=== PATIENT | female | born 1975 | race Caucasian/White ===

== ENCOUNTER 2019-06-18 10:46 | Inpatient (IN) | payer MEDICAID ==
[~2019-06-18] VITALS: Ht 157.5 cm; Wt 66.6 kg
[2019-06-18] MEDS ORDERED: dexamethasone sod phosphate 10mg/ml inj IV STA (10:59)
[2019-06-18] MEDS ORDERED: normal saline 1000ML IV soln IVB ONE ×2 (11:00→12:10)
[2019-06-18] MEDS ORDERED: proCHLORperazine 10 MG/2 ml inj IV ONE (11:00)
[2019-06-18 11:29] LABS: BASOPHILS % (AUTO) 0.4 % (0-1); EOSINOPHILS % (AUTO) 0.1 % (0-6); HEMATOCRIT 28.6 % (35.0-45.0); HEMOGLOBIN 8.8 g/dl (12.0-16.0); LYMPHOCYTES # (AUTO) 0.2 X10'3 (1.1-4.8); LYMPHOCYTES % (AUTO) 3.5 % (21-51); MEAN CORPUSCULAR HEMOGLOBIN 24.2 PG (27.0-31.0); MEAN CORPUSCULAR HGB CONC 30.6 g/dL (33.0-36.5); MEAN PLATELET VOLUME 7.6 FL (7.4-10.4); MONOCYTES # (AUTO) 0.3 X10'3 (0-0.9); MONOCYTES % (AUTO) 5.4 % (2-12); NEUTROPHILS # (AUTO) 5.7 X10'3 (1.8-7.7); NEUTROPHILS % (AUTO) 90.6 % (42-75); PLATELET COUNT 150 X10'3 (140-440); RED BLOOD COUNT 3.62 X10'6 (4.20-5.60); RED CELL DISTRIBUTION WIDTH 23.5 % (11.5-14.5); WHITE BLOOD COUNT 6.3 X10'3 (4.5-11.0)
[2019-06-18 11:33] LABS: URINE HCG NEGATIVE (NEG)
[2019-06-18 11:38] LABS: CLARITY,URINE CLEAR (Clear); COLOR,URINE YELLOW (Yellow); GLUCOSE, URINE NEGATIVE (Neg); KETONES,URINE >=80 mg/dl (Neg); LEUKOCYTE ESTERASE ,URINE NEGATIVE (Neg); NITRITES, URINE NEGATIVE (Neg); OCCULT BLOOD,URINE LARGE (Neg); PH,URINE 5.5 (4.8-8.0); PROTEIN,URINE 100 mg/dl (Neg)
[2019-06-18 11:46] LABS: ALANINE AMINOTRANSFERASE 98 U/L (12-78); ALBUMIN 4.6 G/DL (3.4-5.0); ALBUMIN/GLOBULIN RATIO 1.1 (1.1-1.5); ALKALINE PHOSPHATASE 62 IU/L (46-116); ANION GAP 26 (8-16); ASPARTATE AMINO TRANSFERASE 57 U/L (10-37); BILIRUBIN,TOTAL 0.6 MG/DL (0.1-1.0); BLOOD UREA NITROGEN 6 MG/DL (7-18); BUN/CREATININE RATIO 7.3 (6.6-38.0); CALCIUM 9.4 MG/DL (8.5-10.1); CHLORIDE 89 MMOL/L (99-107); CREATININE 0.82 MG/DL (0.40-0.90); GLUCOSE 131 MG/DL (70-104); SODIUM 130 MMOL/L (135-145); TOTAL CARBON DIOXIDE 15.3 MMOL/L (24-32); TOTAL PROTEIN 8.8 G/DL (6.4-8.2); eGFR 76 ML/MIN
[2019-06-18 11:49] LABS: UA COLLECTION TYPE CLN CATCH MIDSTREAM
[2019-06-18 11:50] LABS: BACTERIA,URINE FEW /HPF (Neg); MUCUS STRANDS FEW /LPF (Neg); RBC,URINE 0-2 /HPF (0-2); SQUAMOUS EPITHELIAL CELL,UR MODERATE /LPF (FEW); WBC,URINE 0-4 /HPF (0-4)
[2019-06-18] MEDS ORDERED: potassium Cl 20 mEq SR tablet PO STA (12:09)
[2019-06-18 12:13] LABS: ANISOCYTOSIS 3+; MICROCYTOSIS 1+; PLATELET ESTIMATE NORMAL; POIKILOCYTOSIS 1+; POLYCHROMASIA 1+; SCHISTOCYTES FEW
[2019-06-18 12:38] LABS: LIPASE 3566 U/L (73-393)
[2019-06-18] MEDS ORDERED: pantoprazole 40 MG vial IV ONE ×2 (13:05→18:05)
[2019-06-18] MEDS ORDERED: NO HOME MEDS (13:19)
[2019-06-18] MEDS: K and/or MAG REPLACEMENT MC SCH (13:20)
[2019-06-18] MEDS ORDERED: mag hydrox/Alum hydrox/simeth 30ml oral suspension PO PRN (13:20)
[2019-06-18] MEDS ORDERED: morphine 2 MG/ML inj. syringe IV PRN (13:20)
[2019-06-18] MEDS ORDERED: potassium Cl 20 mEq SR tablet PO PRN ×2 (13:20)
[2019-06-18] MEDS ORDERED: acetaminophen 325mg tablet PO PRN (13:20)
[2019-06-18] MEDS: normal saline 1000ml 1,000 ML IV SCH ×3 (13:45→22:19)
[2019-06-18 15:01] VITALS: BP 151/92
[2019-06-18] MEDS: LORazepam 2 mg/ml vial IV PRN (16:18)
[2019-06-18] MEDS: thiamine inj. 100 MG, folic acid inj. 2 MG in normal saline 100ml IV soln 100 ML IV SCH (16:45)
[2019-06-18] MEDS: MVI, adult No.4 with vit. K 10 ML in dextrose 5% water 500ml 500 ML IV SCH ×4 (17:56→19:43)
--- NOTE | 2019-06-18 18:58 | NUR ---
HR up to 140's. Patient was up to bathroom. Pt now back to bed and HR back in the 90's.
[2019-06-18 19:00] VITALS: BP 130/89
[2019-06-18 19:36] LABS: HEMATOCRIT 25.4 % (35.0-45.0); HEMOGLOBIN 7.9 g/dl (12.0-16.0); MEAN CORPUSCULAR HEMOGLOBIN 24.6 PG (27.0-31.0); MEAN CORPUSCULAR HGB CONC 31.1 g/dL (33.0-36.5); MEAN CORPUSCULAR VOLUME 78.8 FL (78-98); MEAN PLATELET VOLUME 8.4 FL (7.4-10.4); PLATELET COUNT 130 X10'3 (140-440); RED BLOOD COUNT 3.22 X10'6 (4.20-5.60); RED CELL DISTRIBUTION WIDTH 23.5 % (11.5-14.5); WHITE BLOOD COUNT 4.8 X10'3 (4.5-11.0)
[2019-06-18] MEDS: heparin, porcine 5000 units/ml vial SQ SCH (19:43)
[2019-06-18] MEDS: potassium CL 10mEq/100ml bag 100 ML IV PRN ×2 (22:10→23:18)
[2019-06-19] VITALS: BP 134/84
[2019-06-19] MEDS: potassium CL 10mEq/100ml bag 100 ML IV PRN ×3 (00:16→02:58)
[2019-06-19 00:35] LABS: HEMATOCRIT 22.6 % (35.0-45.0); MEAN CORPUSCULAR HGB CONC 30.9 g/dL (33.0-36.5); MEAN CORPUSCULAR VOLUME 77.9 FL (78-98); MEAN PLATELET VOLUME 7.9 FL (7.4-10.4); PLATELET COUNT 127 X10'3 (140-440); RED CELL DISTRIBUTION WIDTH 23.7 % (11.5-14.5); WHITE BLOOD COUNT 5.1 X10'3 (4.5-11.0)
--- NOTE | 2019-06-19 01:15 | NUR ---
Pt denies bloody/dark/coffee ground emesis or stool. Willing to accept transfusion if needed.
--- NOTE | 2019-06-19 01:15 | NUR ---
H/H 7.0/22.6. Bobby notified. Instructed to check again at 0600 06/19, if below 7, contact MD for transfuse orders.
[2019-06-19] MEDS: ondansetron/PF 4mg/2ml inj IV PRN ×2 (01:19→13:20)
[2019-06-19 05:18] LABS: BASOPHILS % (AUTO) 0.3 % (0-1); EOSINOPHILS % (AUTO) 0.1 % (0-6); HEMATOCRIT 22.6 % (35.0-45.0); HEMOGLOBIN 7.1 g/dl (12.0-16.0); LYMPHOCYTES # (AUTO) 0.5 X10'3 (1.1-4.8); LYMPHOCYTES % (AUTO) 8.4 % (21-51); MEAN CORPUSCULAR HEMOGLOBIN 24.5 PG (27.0-31.0); MEAN CORPUSCULAR HGB CONC 31.1 g/dL (33.0-36.5); MEAN CORPUSCULAR VOLUME 78.6 FL (78-98); MEAN PLATELET VOLUME 8.5 FL (7.4-10.4); MONOCYTES # (AUTO) 0.4 X10'3 (0-0.9); MONOCYTES % (AUTO) 7.9 % (2-12); NEUTROPHILS # (AUTO) 4.7 X10'3 (1.8-7.7); NEUTROPHILS % (AUTO) 83.3 % (42-75); PLATELET COUNT 140 X10'3 (140-440); RED BLOOD COUNT 2.88 X10'6 (4.20-5.60); RED CELL DISTRIBUTION WIDTH 23.7 % (11.5-14.5); WHITE BLOOD COUNT 5.6 X10'3 (4.5-11.0)
[2019-06-19 05:22] LABS: ALANINE AMINOTRANSFERASE 64 U/L (12-78); ALBUMIN 3.4 G/DL (3.4-5.0); ALKALINE PHOSPHATASE 49 IU/L (46-116); ANION GAP 17 (8-16); ASPARTATE AMINO TRANSFERASE 30 U/L (10-37); BILIRUBIN,TOTAL 0.4 MG/DL (0.1-1.0); BLOOD UREA NITROGEN 4 MG/DL (7-18); BUN/CREATININE RATIO 7.7 (6.6-38.0); CALCIUM 8.5 MG/DL (8.5-10.1); CHLORIDE 98 MMOL/L (99-107); CREATININE 0.52 MG/DL (0.40-0.90); GLUCOSE 91 MG/DL (70-104); POTASSIUM 3.8 MMOL/L (3.5-5.1); SODIUM 132 MMOL/L (135-145); TOTAL CARBON DIOXIDE 17.3 MMOL/L (24-32); TOTAL PROTEIN 6.8 G/DL (6.4-8.2); eGFR > 90 ML/MIN
[2019-06-19 05:24] LABS: ALANINE AMINOTRANSFERASE 65 U/L (12-78); ALBUMIN 3.3 G/DL (3.4-5.0); ALBUMIN/GLOBULIN RATIO 0.9 (1.1-1.5); ALKALINE PHOSPHATASE 48 IU/L (46-116); AMYLASE 151 U/L (25-115); ANION GAP 17 (8-16); ASPARTATE AMINO TRANSFERASE 34 U/L (10-37); BILIRUBIN,TOTAL 0.4 MG/DL (0.1-1.0); BLOOD UREA NITROGEN 5 MG/DL (7-18); BUN/CREATININE RATIO 8.6 (6.6-38.0); CALCIUM 8.5 MG/DL (8.5-10.1); CHLORIDE 97 MMOL/L (99-107); CREATININE 0.58 MG/DL (0.40-0.90); GLUCOSE 89 MG/DL (70-104); MAGNESIUM 1.2 MG/DL (1.5-2.4); PHOSPHORUS 1.8 MG/DL (2.3-4.5); POTASSIUM 3.7 MMOL/L (3.5-5.1); SODIUM 132 MMOL/L (135-145); TOTAL PROTEIN 6.8 G/DL (6.4-8.2); eGFR > 90 ML/MIN
[2019-06-19 05:58] LABS: LIPASE 2336 U/L (73-393)
--- NOTE | 2019-06-19 06:30 | NUR ---
Problems reprioritized. Patient report given, questions answered & plan of care reviewed with Kristal Up RN. Resting in bed, denies needs, will continue to monitor. Addendum: 06/19/19 at 1857 by Carine Coker RN Report received at this time.
--- NOTE | 2019-06-19 06:39 | NUR ---
Problems reprioritized. Patient report given, questions answered & plan of care reviewed with JEANNIE Dinero.
[2019-06-19 07:29] VITALS: BP 132/85
[2019-06-19] MEDS: pantoprazole 40 MG vial IV SCH (08:04)
[2019-06-19] MEDS: thiamine inj. 100 MG, folic acid inj. 2 MG in normal saline 100ml IV soln 100 ML IV SCH (08:04)
[2019-06-19] MEDS: LORazepam 2 mg/ml vial IV PRN ×3 (08:31→17:45)
[2019-06-19] MEDS ORDERED: pneumococcal 23-VAL P-sac vacc 25 mcg/0.5ml vial IMVAC ONE (10:00)
[2019-06-19] MEDS: MVI, adult No.4 with vit. K 10 ML in dextrose 5% water 500ml 500 ML IV SCH ×2 (10:58)
[2019-06-19] MEDS: normal saline 1000ml 1,000 ML IV SCH ×3 (10:58→21:01)
[2019-06-19 11:00] VITALS: BP 99/64
[2019-06-19] MEDS: heparin, porcine 5000 units/ml vial SQ SCH ×2 (11:11→19:22)
--- NOTE | 2019-06-19 11:19 | NUR ---
[place] consult, patient reports unsure of any weight loss and eating poorly d/t no appetite. 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 C/o nausea and vomiting for three days, which is when she stopped drinking. Per MD note pt has acute pancreatitis (lipase is 2336, amylase 151), had hypokalemia, hyponatremia, metabolic acidosis secondary to EtOH. She is receiving banana bag and replacement for potassium, which is now WNL. She is NPO. Poor appetite likely r/t EtOH and pancreatitis. Patient's current stated weight appears consistent with usual body weight. No visible fat or muscle loss. No edema. If prolonged NPO status for more than three days patient may benefit from Jejunal tube feedings using corpak past the ligament of Treitz. Recommend: 1. Advance diet as medically indicated to low fat 2. If unable to advance PO diet patient may benefit from corpak jejunal feeding past the ligament of Treitz to mitigate risk of malnutrition in view of history of EtOH and poor PO for three days on admit 3. Weight per rx Addendum: 06/19/19 at [address] Amended: Links added.
[2019-06-19 12:39] LABS: HEMATOCRIT 22.9 % (35.0-45.0); HEMOGLOBIN 7.1 g/dl (12.0-16.0); MEAN CORPUSCULAR HEMOGLOBIN 24.1 PG (27.0-31.0); MEAN CORPUSCULAR HGB CONC 30.9 g/dL (33.0-36.5); MEAN PLATELET VOLUME 7.5 FL (7.4-10.4); PLATELET COUNT 132 X10'3 (140-440); RED BLOOD COUNT 2.94 X10'6 (4.20-5.60); RED CELL DISTRIBUTION WIDTH 23.8 % (11.5-14.5); WHITE BLOOD COUNT 4.3 X10'3 (4.5-11.0)
[2019-06-19 13:10] VITALS: BP 123/82
--- NOTE | 2019-06-19 16:35 | NUR ---
Patient has had multiple high heart rates when up walking to bathroom. Has been up to bathroom multiple times. Did not walk with patient in hallway due to high heart rates. Notified Dr. Booth of tele calls, no new orders. Will continue to monitor.
[2019-06-19 18:00] VITALS: BP 119/80
[2019-06-19] MEDS ORDERED: magnesium 4gm in 100ml NS 100 ML IV PRN (18:15)
[2019-06-19] MEDS ORDERED: magnesium Cl slow-release 64mg tablet PO PRN (18:15)
[2019-06-19] MEDS ORDERED: magnesium 2GM in 50ml NS 50 ML IV PRN (18:15)
[2019-06-19] MEDS: K and/or MAG REPLACEMENT MC SCH (18:16)
--- NOTE | 2019-06-19 18:57 | NUR ---
Problems reprioritized. Patient report given, questions answered & plan of care reviewed with Kristal Up RN. Resting eyes closed respirations even.
[2019-06-19 23:59] VITALS: BP 116/83
[2019-06-20] MEDS: normal saline 1000ml 1,000 ML IV SCH ×4 (04:40→20:53)
[2019-06-20 05:11] LABS: URINE AMPHETAMINE SCREEN NEGATIVE (Neg); URINE BARBITUATE SCREEN NEGATIVE (Neg); URINE BENZODIAZEPINES SCREEN NEGATIVE (Neg); URINE CANNABINOID SCREEN NEGATIVE (Neg); URINE COCAINE SCREEN NEGATIVE (Neg); URINE METHADONE SCREEN NEGATIVE (Neg); URINE OPIATE SCREEN NEGATIVE (Neg); URINE PHENCYCLIDINE SCREEN NEGATIVE (Neg)
[2019-06-20 05:51] LABS: ALANINE AMINOTRANSFERASE 56 U/L (12-78); ALBUMIN 3.5 G/DL (3.4-5.0); ALBUMIN/GLOBULIN RATIO 0.9 (1.1-1.5); ALKALINE PHOSPHATASE 56 IU/L (46-116); AMYLASE 72 U/L (25-115); ANION GAP 14 (8-16); ASPARTATE AMINO TRANSFERASE 30 U/L (10-37); BILIRUBIN,TOTAL 0.4 MG/DL (0.1-1.0); BLOOD UREA NITROGEN 4 MG/DL (7-18); BUN/CREATININE RATIO 7.8 (6.6-38.0); CALCIUM 8.5 MG/DL (8.5-10.1); CHLORIDE 97 MMOL/L (99-107); CREATININE 0.51 MG/DL (0.40-0.90); GLUCOSE 84 MG/DL (70-104); LIPASE 1145 U/L (73-393); MAGNESIUM 2.5 MG/DL (1.5-2.4); PHOSPHORUS 2.6 MG/DL (2.3-4.5); SODIUM 133 MMOL/L (135-145); TOTAL CARBON DIOXIDE 22.4 MMOL/L (24-32); TOTAL PROTEIN 7.4 G/DL (6.4-8.2); eGFR > 90 ML/MIN
[2019-06-20 06:04] LABS: BASOPHILS % (AUTO) 0.9 % (0-1); EOSINOPHILS % (AUTO) 0.8 % (0-6); HEMATOCRIT 24.6 % (35.0-45.0); HEMOGLOBIN 7.6 g/dl (12.0-16.0); LYMPHOCYTES # (AUTO) 0.4 X10'3 (1.1-4.8); LYMPHOCYTES % (AUTO) 12.7 % (21-51); MEAN CORPUSCULAR HEMOGLOBIN 24.5 PG (27.0-31.0); MEAN CORPUSCULAR VOLUME 78.9 FL (78-98); MEAN PLATELET VOLUME 7.7 FL (7.4-10.4); MONOCYTES # (AUTO) 0.3 X10'3 (0-0.9); MONOCYTES % (AUTO) 8.1 % (2-12); NEUTROPHILS # (AUTO) 2.7 X10'3 (1.8-7.7); NEUTROPHILS % (AUTO) 77.5 % (42-75); PLATELET COUNT 201 X10'3 (140-440); RED BLOOD COUNT 3.11 X10'6 (4.20-5.60); RED CELL DISTRIBUTION WIDTH 24.4 % (11.5-14.5); WHITE BLOOD COUNT 3.4 X10'3 (4.5-11.0)
--- NOTE | 2019-06-20 06:40 | NUR ---
Problems reprioritized. Patient report given, questions answered & plan of care reviewed with JEANNIE Bardales.
[2019-06-20 07:07] LABS: POTASSIUM 2.7 MMOL/L (3.5-5.1)
[2019-06-20] MEDS: pantoprazole 40 MG vial IV SCH (07:57)
[2019-06-20] MEDS: heparin, porcine 5000 units/ml vial SQ SCH ×2 (07:59→19:25)
[2019-06-20] MEDS: ondansetron/PF 4mg/2ml inj IV PRN ×2 (07:59→16:28)
[2019-06-20 08:00] VITALS: BP 126/91
[2019-06-20] MEDS: potassium CL 10mEq/100ml bag 100 ML IV PRN ×10 (08:02→22:23)
[2019-06-20] MEDS: magnesium hydroxide 30ml (MOM) UD suspension PO PRN (08:21)
[2019-06-20] MEDS: LORazepam 2 mg/ml vial IV PRN ×2 (08:27→21:07)
[2019-06-20] MEDS: K and/or MAG REPLACEMENT MC SCH (08:34)
[2019-06-20 11:00] VITALS: BP 141/93
[2019-06-20] MEDS: thiamine inj. 100 MG, folic acid inj. 2 MG in normal saline 100ml IV soln 100 ML IV SCH (12:10)
--- NOTE | 2019-06-20 12:17 | NUR ---
Per Pharmacist Rhiannon, It is okay to run K+ bags with Vitamin bag and thiamine/folic acid bag.
[2019-06-20] MEDS: MVI, adult No.4 with vit. K 10 ML in dextrose 5% water 500ml 500 ML IV SCH ×2 (13:21)
[2019-06-20] MEDS ORDERED: LORazepam 1 MG tablet PO PRN (15:55)
[2019-06-20 18:00] VITALS: BP 141/90
--- NOTE | 2019-06-20 18:34 | NUR ---
Problems reprioritized. Patient report given, questions answered & plan of care reviewed with Kristal Cedeno RN.
[2019-06-21] VITALS (10 sets, daily range): BP systolic 125–149; BP diastolic 85–102
[2019-06-21] MEDS: potassium CL 10mEq/100ml bag 100 ML IV PRN ×2 (00:01→01:10)
--- NOTE | 2019-06-21 03:39 | NUR ---
Tele called to report HR in 150's. Pt was up to restroom. HR returned to normal when pt returned to bed.
[2019-06-21 04:53] LABS: BASOPHILS % (AUTO) 1.4 % (0-1); EOSINOPHILS # (AUTO) 0.1 X10'3 (0-0.9); EOSINOPHILS % (AUTO) 2.3 % (0-6); LYMPHOCYTES # (AUTO) 0.3 X10'3 (1.1-4.8); LYMPHOCYTES % (AUTO) 13.3 % (21-51); MEAN CORPUSCULAR HEMOGLOBIN 24.3 PG (27.0-31.0); MEAN CORPUSCULAR HGB CONC 31.1 g/dL (33.0-36.5); MEAN PLATELET VOLUME 7.6 FL (7.4-10.4); MONOCYTES # (AUTO) 0.3 X10'3 (0-0.9); MONOCYTES % (AUTO) 13.4 % (2-12); NEUTROPHILS # (AUTO) 1.6 X10'3 (1.8-7.7); NEUTROPHILS % (AUTO) 69.6 % (42-75); PLATELET COUNT 241 X10'3 (140-440); RED BLOOD COUNT 2.86 X10'6 (4.20-5.60); RED CELL DISTRIBUTION WIDTH 23.9 % (11.5-14.5); WHITE BLOOD COUNT 2.3 X10'3 (4.5-11.0)
[2019-06-21 05:10] LABS: ALANINE AMINOTRANSFERASE 40 U/L (12-78); ALBUMIN 3.1 G/DL (3.4-5.0); ALBUMIN/GLOBULIN RATIO 0.9 (1.1-1.5); ALKALINE PHOSPHATASE 50 IU/L (46-116); AMYLASE 69 U/L (25-115); ANION GAP 15 (8-16); ASPARTATE AMINO TRANSFERASE 19 U/L (10-37); BILIRUBIN,TOTAL 0.3 MG/DL (0.1-1.0); BLOOD UREA NITROGEN 4 MG/DL (7-18); BUN/CREATININE RATIO 9.1 (6.6-38.0); CALCIUM 8.6 MG/DL (8.5-10.1); CHLORIDE 98 MMOL/L (99-107); CREATININE 0.44 MG/DL (0.40-0.90); GLUCOSE 97 MG/DL (70-104); LIPASE 1128 U/L (73-393); MAGNESIUM 1.7 MG/DL (1.5-2.4); PHOSPHORUS 2.8 MG/DL (2.3-4.5); POTASSIUM 3.8 MMOL/L (3.5-5.1); SODIUM 133 MMOL/L (135-145); TOTAL CARBON DIOXIDE 20.3 MMOL/L (24-32); TOTAL PROTEIN 6.6 G/DL (6.4-8.2); eGFR > 90 ML/MIN
[2019-06-21 05:18] LABS: HEMATOCRIT 22.4 % (35.0-45.0); HEMOGLOBIN 6.9 g/dl (12.0-16.0)
[2019-06-21] MEDS: magnesium hydroxide 30ml (MOM) UD suspension PO PRN (05:32)
[2019-06-21] MEDS: LORazepam 2 mg/ml vial IV PRN ×2 (05:33→21:09)
--- NOTE | 2019-06-21 06:17 | NUR ---
Problems reprioritized. Patient report given, questions answered & plan of care reviewed with JEANNIE Barnes.
--- NOTE | 2019-06-21 07:05 | NUR ---
Day shift hospitalist notified of H&H.
[2019-06-21 07:23] LABS: ANISOCYTOSIS 3+; HYPOCHROMASIA 1+; PLATELET ESTIMATE NORMAL; POIKILOCYTOSIS 1+; POLYCHROMASIA 2+; SCHISTOCYTES FEW; TOTAL CELLS COUNTED 100
[2019-06-21 07:24] LABS: ELLIPTOCYTES FEW
[2019-06-21 07:25] LABS: MICROCYTOSIS 1+; ROULEAUX 1+
[2019-06-21] MEDS: normal saline 1000ml 1,000 ML IV SCH ×3 (07:59→21:10)
[2019-06-21] MEDS: ondansetron/PF 4mg/2ml inj IV PRN (08:00)
[2019-06-21] MEDS: K and/or MAG REPLACEMENT MC SCH (08:00)
[2019-06-21] MEDS: pantoprazole 40 MG vial IV SCH (08:00)
[2019-06-21] MEDS: thiamine inj. 100 MG, folic acid inj. 2 MG in normal saline 100ml IV soln 100 ML IV SCH (08:01)
[2019-06-21] MEDS: heparin, porcine 5000 units/ml vial SQ SCH (08:01)
[2019-06-21] MEDS: MVI, adult No.4 with vit. K 10 ML in dextrose 5% water 500ml 500 ML IV SCH ×2 (08:01)
[2019-06-21 15:48] LABS: BASOPHILS % (AUTO) 1.1 % (0-1); EOSINOPHILS % (AUTO) 1.7 % (0-6); HEMATOCRIT 26.5 % (35.0-45.0); HEMOGLOBIN 8.4 g/dl (12.0-16.0); LYMPHOCYTES # (AUTO) 0.4 X10'3 (1.1-4.8); LYMPHOCYTES % (AUTO) 16.5 % (21-51); MEAN CORPUSCULAR HEMOGLOBIN 25.3 PG (27.0-31.0); MEAN CORPUSCULAR HGB CONC 31.7 g/dL (33.0-36.5); MEAN CORPUSCULAR VOLUME 79.8 FL (78-98); MEAN PLATELET VOLUME 6.9 FL (7.4-10.4); MONOCYTES # (AUTO) 0.3 X10'3 (0-0.9); MONOCYTES % (AUTO) 13.2 % (2-12); NEUTROPHILS # (AUTO) 1.4 X10'3 (1.8-7.7); NEUTROPHILS % (AUTO) 67.5 % (42-75); PLATELET COUNT 225 X10'3 (140-440); RED BLOOD COUNT 3.32 X10'6 (4.20-5.60); RED CELL DISTRIBUTION WIDTH 23.5 % (11.5-14.5); WHITE BLOOD COUNT 2.1 X10'3 (4.5-11.0)
[2019-06-21 16:28] LABS: ANISOCYTOSIS 3+; HYPOCHROMASIA 1+; MICROCYTOSIS 1+; PLATELET ESTIMATE NORMAL
--- NOTE | 2019-06-21 18:31 | NUR ---
Problems reprioritized. Patient report given, questions answered & plan of care reviewed with JEANNIE Giraldo.
[2019-06-21 18:58] LABS: HEMATOCRIT 28.2 % (35.0-45.0); MEAN CORPUSCULAR HEMOGLOBIN 25.2 PG (27.0-31.0); MEAN CORPUSCULAR HGB CONC 31.9 g/dL (33.0-36.5); PLATELET COUNT 300 X10'3 (140-440); RED BLOOD COUNT 3.56 X10'6 (4.20-5.60); RED CELL DISTRIBUTION WIDTH 23.2 % (11.5-14.5); WHITE BLOOD COUNT 2.9 X10'3 (4.5-11.0)
--- NOTE | 2019-06-21 19:20 | NUR ---
Patient in room [facility] 344. I have received report from JEANNIE Jones and had the opportunity to ask questions and assume patient care. Addendum: 06/21/19 at 1920 by Amber Parra RN Amended: Links added.
[2019-06-21] MEDS: HYDROcodone/acetaminophen 5mg/325mg tablet PO PRN (21:10)
[2019-06-22] VITALS: BP 154/93
[2019-06-22] MEDS: HYDROcodone/acetaminophen 5mg/325mg tablet PO PRN ×2 (04:18→20:29)
[2019-06-22] MEDS: magnesium hydroxide 30ml (MOM) UD suspension PO PRN (04:18)
[2019-06-22] MEDS: LORazepam 2 mg/ml vial IV PRN (04:25)
[2019-06-22 05:19] LABS: BASOPHILS % (AUTO) 1.8 % (0-1); EOSINOPHILS # (AUTO) 0.1 X10'3 (0-0.9); EOSINOPHILS % (AUTO) 3.5 % (0-6); HEMATOCRIT 27.3 % (35.0-45.0); HEMOGLOBIN 8.6 g/dl (12.0-16.0); LYMPHOCYTES # (AUTO) 0.4 X10'3 (1.1-4.8); LYMPHOCYTES % (AUTO) 14.8 % (21-51); MEAN CORPUSCULAR HEMOGLOBIN 25.3 PG (27.0-31.0); MEAN CORPUSCULAR HGB CONC 31.6 g/dL (33.0-36.5); MEAN CORPUSCULAR VOLUME 79.9 FL (78-98); MEAN PLATELET VOLUME 7.4 FL (7.4-10.4); MONOCYTES # (AUTO) 0.4 X10'3 (0-0.9); MONOCYTES % (AUTO) 16.8 % (2-12); NEUTROPHILS # (AUTO) 1.6 X10'3 (1.8-7.7); NEUTROPHILS % (AUTO) 63.1 % (42-75); PLATELET COUNT 321 X10'3 (140-440); RED BLOOD COUNT 3.42 X10'6 (4.20-5.60); RED CELL DISTRIBUTION WIDTH 23.5 % (11.5-14.5); WHITE BLOOD COUNT 2.6 X10'3 (4.5-11.0)
[2019-06-22 05:39] LABS: ALANINE AMINOTRANSFERASE 40 U/L (12-78); ALBUMIN 3.4 G/DL (3.4-5.0); ALBUMIN/GLOBULIN RATIO 0.9 (1.1-1.5); ALKALINE PHOSPHATASE 55 IU/L (46-116); AMYLASE 86 U/L (25-115); ANION GAP 12 (8-16); ASPARTATE AMINO TRANSFERASE 22 U/L (10-37); BILIRUBIN,TOTAL 0.4 MG/DL (0.1-1.0); BLOOD UREA NITROGEN 2 MG/DL (7-18); BUN/CREATININE RATIO 3.9 (6.6-38.0); CHLORIDE 100 MMOL/L (99-107); CREATININE 0.51 MG/DL (0.40-0.90); GLUCOSE 85 MG/DL (70-104); LIPASE 1295 U/L (73-393); MAGNESIUM 1.8 MG/DL (1.5-2.4); PHOSPHORUS 3.7 MG/DL (2.3-4.5); SODIUM 136 MMOL/L (135-145); TOTAL CARBON DIOXIDE 23.7 MMOL/L (24-32); TOTAL PROTEIN 7.1 G/DL (6.4-8.2); eGFR > 90 ML/MIN
[2019-06-22] MEDS ORDERED: potassium Cl 20 mEq SR tablet PO PRN ×2 (05:45)
[2019-06-22] MEDS ORDERED: potassium CL 10mEq/100ml bag 100 ML IV PRN (05:45)
--- NOTE | 2019-06-22 06:15 | NUR ---
Patient in room [facility] 344. I have received report from Kristal Avendaño RN and had the opportunity to ask questions and assume patient care.
[2019-06-22 06:22] LABS: ANISOCYTOSIS 3+; GIANT PLATELET FEW; LARGE PLATELETS FEW; MICROCYTOSIS 1+; PLATELET ESTIMATE NORMAL; TOTAL CELLS COUNTED 100
[2019-06-22 06:23] LABS: HYPOCHROMASIA 1+; POLYCHROMASIA 1+
--- NOTE | 2019-06-22 06:35 | NUR ---
Problems reprioritized. Patient report given, questions answered & plan of care reviewed with JEANNIE Demarco. . Addendum: 06/22/19 at 0635 by Amber Parra RN Amended: Links added.
--- NOTE | 2019-06-22 06:47 | NUR ---
Patient in room [facility]YL[facility] 344A. I have received report from Zeinab Ferrera RN and had the opportunity to ask questions and assume patient care.
[2019-06-22] MEDS: K and/or MAG REPLACEMENT MC SCH ×2 (06:52→06:58)
[2019-06-22] MEDS: pantoprazole 40 MG vial IV SCH (06:57)
[2019-06-22] MEDS: ondansetron/PF 4mg/2ml inj IV PRN (06:58)
[2019-06-22] MEDS: MVI, adult No.4 with vit. K 10 ML in dextrose 5% water 500ml 500 ML IV SCH ×2 (07:07)
[2019-06-22] MEDS: normal saline 1000ml 1,000 ML IV SCH ×2 (07:12→21:49)
[2019-06-22] MEDS: thiamine inj. 100 MG, folic acid inj. 2 MG in normal saline 100ml IV soln 100 ML IV SCH (07:16)
[2019-06-22 07:25] VITALS: BP 145/93
[2019-06-22 11:42] VITALS: BP 142/84
[2019-06-22] MEDS ORDERED: iohexol 300mg/ml 100ml inj. ONE (11:55)
--- NOTE | 2019-06-22 11:57 | NUR ---
Patient report given to Kiley Student Nurse
--- NOTE | 2019-06-22 12:15 | NUR ---
Received report from Jaycee (student RN)
--- NOTE | 2019-06-22 14:08 | NUR ---
Reassessment: Pancreatitis slowly improving per MD notes. Pt now day 5 NPO. Pt s/p CT of abdomen and pelvis with findings of dilation of small bowel and colon which may be r/t an ileus per CT report. Pt without a BM since 06/17, consistently receiving MoM since 06/20. Paged MD regarding recommendation to start TPN if pt to remain NPO greater than 7 days. TPN recommendations below. Will continue to follow. Recommend: 1. Advance diet as medically indicated to low fat 2. If unable to advance PO diet patient may benefit from continuous TPN using 2:1 Clinimix E 02/08 with goal rate of 80 mL/hr and piggyback 190 mL 20% intralipids with goal rate of 16 mL/hr to run for 12 hrs 3. Once ileus resolves and if still unable to advance PO diet pt may benefit from corpak jejunal feeding past the ligament of Treitz to mitigate risk of malnutrition in view of history of EtOH and poor PO for three days on admit 4. Weight per rx Addendum: 06/22/19 at [address] Amended: Links added.
[2019-06-22 14:13] LABS: OCCULT BLOOD STOOL NEGATIVE (Neg)
--- NOTE | 2019-06-22 14:19 | NUR ---
Received TC from MD regarding TPN recommendations. MD reports pt with abdominal discomfort and lipase elevated from last lab draw. Per MD pt will likely get a PICC and start TPN. Requested MD/RN send RD a TPN consult once PICC is placed. Will continue to follow and monitor for consult. Addendum: 06/22/19 at [address] Amended: Links added.
[2019-06-22] MEDS ORDERED: LORazepam 2 mg/ml vial IV PRN (15:55)
[2019-06-22] MEDS ORDERED: potassium Cl 40MEQ/NS 500ml 500 ML IV ONE (16:40)
--- NOTE | 2019-06-22 17:04 | NUR ---
Student documentation: I have reviewed and agree with all interventions, assessments performed and documented by Ann-Marie [facility].
--- NOTE | 2019-06-22 17:56 | NUR ---
Passed report to primary RN (Nilam)
--- NOTE | 2019-06-22 18:00 | NUR ---
Problems reprioritized. Patient report given, questions answered & plan of care reviewed with JEANNIE Daniels.
[2019-06-22 18:30] VITALS: BP 150/95
--- NOTE | 2019-06-22 18:30 | NUR ---
Patient in room [facility] 344. I have received report from Nilam DENNIS and had the opportunity to ask questions and assume patient care.
[2019-06-22] MEDS ORDERED: Trace element-5 inj. 1 ML in AA 5%/cal/electrolyte-TPN/D15W 2,000 ML IV SCH (20:00)
[2019-06-22] MEDS: LORazepam 1 MG tablet PO PRN (20:29)
[2019-06-23] VITALS: BP 156/89
[2019-06-23 02:19] LABS: EOSINOPHILS # (AUTO) 0.1 X10'3 (0-0.9); EOSINOPHILS % (AUTO) 3.7 % (0-6); HEMATOCRIT 24.8 % (35.0-45.0); LYMPHOCYTES # (AUTO) 0.4 X10'3 (1.1-4.8); LYMPHOCYTES % (AUTO) 15.5 % (21-51); MEAN CORPUSCULAR HEMOGLOBIN 25.3 PG (27.0-31.0); MEAN CORPUSCULAR HGB CONC 32.1 g/dL (33.0-36.5); MEAN CORPUSCULAR VOLUME 78.6 FL (78-98); MONOCYTES # (AUTO) 0.6 X10'3 (0-0.9); MONOCYTES % (AUTO) 24.4 % (2-12); NEUTROPHILS # (AUTO) 1.3 X10'3 (1.8-7.7); NEUTROPHILS % (AUTO) 55.4 % (42-75); PLATELET COUNT 330 X10'3 (140-440); RED BLOOD COUNT 3.15 X10'6 (4.20-5.60); RED CELL DISTRIBUTION WIDTH 23.6 % (11.5-14.5); WHITE BLOOD COUNT 2.3 X10'3 (4.5-11.0)
[2019-06-23 02:23] LABS: ALANINE AMINOTRANSFERASE 33 U/L (12-78); ALBUMIN 3.1 G/DL (3.4-5.0); ALBUMIN/GLOBULIN RATIO 0.9 (1.1-1.5); ALKALINE PHOSPHATASE 51 IU/L (46-116); AMYLASE 80 U/L (25-115); ANION GAP 11 (8-16); ASPARTATE AMINO TRANSFERASE 17 U/L (10-37); BILIRUBIN,TOTAL 0.3 MG/DL (0.1-1.0); BLOOD UREA NITROGEN 3 MG/DL (7-18); BUN/CREATININE RATIO 5.6 (6.6-38.0); CALCIUM 8.4 MG/DL (8.5-10.1); CHLORIDE 101 MMOL/L (99-107); CREATININE 0.54 MG/DL (0.40-0.90); GLUCOSE 111 MG/DL (70-104); LIPASE 1175 U/L (73-393); MAGNESIUM 1.7 MG/DL (1.5-2.4); PHOSPHORUS 3.8 MG/DL (2.3-4.5); POTASSIUM 3.6 MMOL/L (3.5-5.1); SODIUM 137 MMOL/L (135-145); TOTAL CARBON DIOXIDE 24.6 MMOL/L (24-32); TOTAL PROTEIN 6.4 G/DL (6.4-8.2); eGFR > 90 ML/MIN
[2019-06-23 03:03] LABS: EOSINOPHILS % (MANUAL) 2 % (0-6); LYMPHOCYTES % (MANUAL) 22 % (21-51); MONOCYTES % (MANUAL) 19 % (2-12); NEUTROPHILS % (MANUAL) 57 % (42-75); SMUDGE CELLS 3+; TOTAL CELLS COUNTED 100
[2019-06-23 03:04] LABS: ANISOCYTOSIS 3+; MICROCYTOSIS 1+; PLATELET ESTIMATE NORMAL
[2019-06-23] MEDS: normal saline 1000ml 1,000 ML IV SCH ×3 (03:56→17:16)
--- NOTE | 2019-06-23 06:46 | NUR ---
Problems reprioritized. Patient report given, questions answered & plan of care reviewed with Yady RN and student nurse.
[2019-06-23 07:00] VITALS: BP 143/86
[2019-06-23] MEDS: K and/or MAG REPLACEMENT MC SCH (07:19)
[2019-06-23] MEDS: pantoprazole 40 MG vial IV SCH (07:44)
[2019-06-23] MEDS: thiamine inj. 100 MG, folic acid inj. 2 MG in normal saline 100ml IV soln 100 ML IV SCH (07:44)
[2019-06-23] MEDS: LORazepam 1 MG tablet PO PRN (07:46)
[2019-06-23] MEDS ORDERED: MVI, adult No.4 with vit. K 10 ML in dextrose 5% water 500ml 490 ML IV SCH ×2 (10:00)
[2019-06-23 11:00] VITALS: BP 143/96
[2019-06-23] MEDS: MVI, adult No.4 with vit. K 10 ML in dextrose 5% water 500ml 500 ML IV SCH ×2 (11:45)
[2019-06-23] MEDS: HYDROcodone/acetaminophen 5mg/325mg tablet PO PRN ×2 (11:48→20:15)
[2019-06-23] MEDS ORDERED: Dextrose 10%-water IV solution 1,000 ML IV PRN (11:49)
--- NOTE | 2019-06-23 12:29 | NUR ---
TPN consult: PICC line has been placed. TPN recommendations d/w pharmacy. TPN currently running at 30 mL/hr working towards goal rate. LBM 06/22. Will continue to follow. Recommend: 1. Advance diet as medically indicated to low fat 2. Continuous TPN using 2:1 Clinimix E 02/08 with goal rate of 80 mL/hr to provide 96 g protein and 288 g dextrose with dextrose load 2.84 mg/kg/min 3. Piggyback 192 mL 20% intralipids with goal rate of 16 mL/hr to run for 12 hrs to provide 38.4 g lipids 4. In total to provide 1363 non protein kcal and 1747 total kcal 5. Once ileus resolves and if still unable to advance PO diet pt may benefit from corpak jejunal feeding past the ligament of Treitz to mitigate risk of malnutrition in view of history of EtOH and poor PO for three days on admit 6. Prealbumin/TG q / 7. Daily wt Addendum: 06/23/19 at [address] Amended: Links added.
[2019-06-23 13:24] LABS: CHOL/HDL RATIO 3.7 (0.00-4.99); CHOLESTEROL 173 MG/DL (0-200); HDL CHOLESTEROL 47 MG/DL (35-60); LDL CHOLESTEROL 108 MG/DL (50-100); TRIGLYCERIDES 53 MG/DL (20-135)
[2019-06-23 18:00] VITALS: BP 123/88
--- NOTE | 2019-06-23 18:26 | NUR ---
Problems reprioritized. Patient report given, questions answered & plan of care reviewed with NEL DENNIS.
[2019-06-23] MEDS: Trace element-5 inj. 1 ML in AA 5%/cal/electrolyte-TPN/D15W 2,000 ML IV SCH (20:04)
[2019-06-23] MEDS: Melatonin 3mg tablet PO SCH (20:13)
[2019-06-24] VITALS: BP 134/90
[2019-06-24] MEDS: normal saline 1000ml 1,000 ML IV SCH (01:53)
[2019-06-24 02:25] LABS: ALANINE AMINOTRANSFERASE 28 U/L (12-78); ALBUMIN/GLOBULIN RATIO 0.9 (1.1-1.5); ALKALINE PHOSPHATASE 48 IU/L (46-116); ANION GAP 9 (8-16); ASPARTATE AMINO TRANSFERASE 13 U/L (10-37); BILIRUBIN,TOTAL 0.2 MG/DL (0.1-1.0); BLOOD UREA NITROGEN 8 MG/DL (7-18); BUN/CREATININE RATIO 16.3 (6.6-38.0); CALCIUM 8.3 MG/DL (8.5-10.1); CHLORIDE 104 MMOL/L (99-107); CREATININE 0.49 MG/DL (0.40-0.90); GLUCOSE 126 MG/DL (70-104); LIPASE 835 U/L (73-393); MAGNESIUM 1.8 MG/DL (1.5-2.4); PHOSPHORUS 5.1 MG/DL (2.3-4.5); POTASSIUM 3.4 MMOL/L (3.5-5.1); SODIUM 138 MMOL/L (135-145); TOTAL CARBON DIOXIDE 24.7 MMOL/L (24-32); TOTAL PROTEIN 6.3 G/DL (6.4-8.2); eGFR > 90 ML/MIN
[2019-06-24 02:27] LABS: HEMATOCRIT 24.6 % (35.0-45.0); HEMOGLOBIN 7.6 g/dl (12.0-16.0); MEAN CORPUSCULAR HEMOGLOBIN 24.7 PG (27.0-31.0); MEAN CORPUSCULAR VOLUME 79.6 FL (78-98); MEAN PLATELET VOLUME 7.2 FL (7.4-10.4); PLATELET COUNT 368 X10'3 (140-440); RED BLOOD COUNT 3.09 X10'6 (4.20-5.60); RED CELL DISTRIBUTION WIDTH 23.4 % (11.5-14.5); WHITE BLOOD COUNT 2.4 X10'3 (4.5-11.0)
--- NOTE | 2019-06-24 06:31 | NUR ---
Problems reprioritized. Patient report given, questions answered & plan of care reviewed with Yady DENNIS.
[2019-06-24] MEDS: HYDROcodone/acetaminophen 5mg/325mg tablet PO PRN ×2 (06:51→18:56)
[2019-06-24 07:00] VITALS: BP 149/88
[2019-06-24] MEDS: MVI, adult No.4 with vit. K 10 ML in dextrose 5% water 500ml 500 ML IV SCH ×2 (07:36)
[2019-06-24] MEDS: potassium CL 10mEq/100ml bag 100 ML IV PRN ×4 (07:37→12:59)
[2019-06-24] MEDS: pantoprazole 40 MG vial IV SCH (07:37)
[2019-06-24] MEDS: K and/or MAG REPLACEMENT MC SCH (07:37)
[2019-06-24 11:52] VITALS: BP 137/91
[2019-06-24 18:00] VITALS: BP 126/89
--- NOTE | 2019-06-24 18:32 | NUR ---
Problems reprioritized. Patient report given, questions answered & plan of care reviewed with DAVON DENNIS.
--- NOTE | 2019-06-24 19:00 | NUR ---
Patient in room [facility] 344. I have received report from Yady DENNIS and had the opportunity to ask questions and assume patient care. Addendum: 06/25/19 at 0558 by Jacquelin Johnson RN Amended: Links added.
[2019-06-24] MEDS: Melatonin 3mg tablet PO SCH (20:08)
[2019-06-24] MEDS: Trace element-5 inj. 1 ML in AA 5%/cal/electrolyte-TPN/D15W 2,000 ML IV SCH (20:56)
[2019-06-24] MEDS: ondansetron/PF 4mg/2ml inj IV PRN (23:36)
[2019-06-25] VITALS: BP 129/88
[2019-06-25] MEDS: HYDROcodone/acetaminophen 5mg/325mg tablet PO PRN ×2 (04:25→20:59)
[2019-06-25] MEDS: magnesium hydroxide 30ml (MOM) UD suspension PO PRN (04:25)
--- NOTE | 2019-06-25 04:30 | NUR ---
Labs drawn and sent to lab as ordered. Addendum: 06/25/19 at 0735 by Jacquelin Johnson RN Amended: Links added.
[2019-06-25 05:39] LABS: ALANINE AMINOTRANSFERASE 28 U/L (12-78); ALBUMIN 3.3 G/DL (3.4-5.0); ALBUMIN/GLOBULIN RATIO 0.9 (1.1-1.5); ALKALINE PHOSPHATASE 50 IU/L (46-116); ANION GAP 9 (8-16); ASPARTATE AMINO TRANSFERASE 16 U/L (10-37); BILIRUBIN,TOTAL 0.2 MG/DL (0.1-1.0); BLOOD UREA NITROGEN 10 MG/DL (7-18); BUN/CREATININE RATIO 16.1 (6.6-38.0); CALCIUM 8.8 MG/DL (8.5-10.1); CHLORIDE 102 MMOL/L (99-107); CREATININE 0.62 MG/DL (0.40-0.90); GLUCOSE 105 MG/DL (70-104); LIPASE 647 U/L (73-393); PHOSPHORUS 5.5 MG/DL (2.3-4.5); POTASSIUM 4.2 MMOL/L (3.5-5.1); SODIUM 136 MMOL/L (135-145); TOTAL CARBON DIOXIDE 25.4 MMOL/L (24-32); TOTAL PROTEIN 6.8 G/DL (6.4-8.2); eGFR > 90 ML/MIN
--- NOTE | 2019-06-25 06:00 | NUR ---
Patient report given Marcia DENNIS, questions answered & plan of care reviewed with Addendum: 06/25/19 at 0831 by Jacquelin Johnson RN Amended: Links added.
[2019-06-25 06:02] LABS: HEMATOCRIT 26.8 % (35.0-45.0); HEMOGLOBIN 8.3 g/dl (12.0-16.0); MEAN CORPUSCULAR HEMOGLOBIN 24.8 PG (27.0-31.0); MEAN CORPUSCULAR VOLUME 80.2 FL (78-98); MEAN PLATELET VOLUME 7.6 FL (7.4-10.4); PLATELET COUNT 413 X10'3 (140-440); RED BLOOD COUNT 3.35 X10'6 (4.20-5.60); RED CELL DISTRIBUTION WIDTH 23.9 % (11.5-14.5); WHITE BLOOD COUNT 2.8 X10'3 (4.5-11.0)
--- NOTE | 2019-06-25 06:49 | NUR ---
Patient in room [facility] 344. I have received report from Jacquelin DENNIS and had the opportunity to ask questions and assume patient care.
[2019-06-25 07:19] VITALS: BP 118/77
[2019-06-25] MEDS: K and/or MAG REPLACEMENT MC SCH (08:00)
[2019-06-25] MEDS: MVI, adult No.4 with vit. K 10 ML in dextrose 5% water 500ml 500 ML IV SCH ×2 (09:47)
[2019-06-25] MEDS: pantoprazole 40 MG vial IV SCH (09:47)
[2019-06-25] MEDS: Trace element-5 inj. 1 ML in AA 5%/cal/electrolyte-TPN/D15W 2,000 ML IV SCH (11:24)
--- NOTE | 2019-06-25 11:25 | NUR ---
TPN rate was reduced from [address] Booth which is covering for Dr Mathew. Pharmacy was informed that pt is being wean off TPN, Advance dietary as tolerated.
[2019-06-25 12:00] VITALS: BP 111/77
--- NOTE | 2019-06-25 14:26 | NUR ---
reassessment: Pt PO 100% clear liquids with no abdominal pain or nausea; advanced to full liquids and weaning TPN currently per MD note. Will monitor for GI tolerance and ONS needs as diet advances. Lipase down to 647 from over 3000 on admit. Will continue to monitor. Recommend: 1. Advance diet as medically indicated to low fat 2. monitor for ONS needs as diet advances 3. weekly wts Addendum: 06/25/19 at [address] Amended: Links added.
--- NOTE | 2019-06-25 17:37 | NUR ---
Dr Booth saw pt this am at 1130 and asked that we wean her off TPN once 6 hrs lapsed and her glucose level was ok. Pt's glucose was 96 at 1737. Called pharmacy to DC TPA per MD's orders.
[2019-06-25 18:00] VITALS: BP 106/72
--- NOTE | 2019-06-25 18:22 | NUR ---
Problems reprioritized. Patient report given, questions answered & plan of care reviewed with Estevan DENNIS.
--- NOTE | 2019-06-25 18:24 | NUR ---
Patient in room [facility] 344. I have received report from JEANNIE Walsh and had the opportunity to ask questions and assume patient care.
[2019-06-25] MEDS: Melatonin 3mg tablet PO SCH (20:59)
[2019-06-26 00:56] VITALS: BP 98/56
[2019-06-26 05:16] LABS: HEMOGLOBIN 8.3 g/dl (12.0-16.0); MEAN CORPUSCULAR HEMOGLOBIN 25.1 PG (27.0-31.0); MEAN CORPUSCULAR HGB CONC 31.7 g/dL (33.0-36.5); MEAN PLATELET VOLUME 7.5 FL (7.4-10.4); PLATELET COUNT 414 X10'3 (140-440); RED BLOOD COUNT 3.29 X10'6 (4.20-5.60); WHITE BLOOD COUNT 2.8 X10'3 (4.5-11.0)
[2019-06-26 05:29] LABS: ALANINE AMINOTRANSFERASE 28 U/L (12-78); ALBUMIN/GLOBULIN RATIO 0.8 (1.1-1.5); ALKALINE PHOSPHATASE 49 IU/L (46-116); ANION GAP 9 (8-16); ASPARTATE AMINO TRANSFERASE 18 U/L (10-37); BILIRUBIN,TOTAL 0.2 MG/DL (0.1-1.0); BLOOD UREA NITROGEN 10 MG/DL (7-18); BUN/CREATININE RATIO 15.6 (6.6-38.0); CHLORIDE 104 MMOL/L (99-107); CREATININE 0.64 MG/DL (0.40-0.90); GLUCOSE 96 MG/DL (70-104); LIPASE 588 U/L (73-393); MAGNESIUM 2.1 MG/DL (1.5-2.4); PHOSPHORUS 5.1 MG/DL (2.3-4.5); PREALBUMIN 20.9 MG/DL (19-36); SODIUM 138 MMOL/L (135-145); TOTAL CARBON DIOXIDE 25.5 MMOL/L (24-32); TOTAL PROTEIN 6.7 G/DL (6.4-8.2); TRIGLYCERIDES 148 MG/DL (20-135); eGFR > 90 ML/MIN
--- NOTE | 2019-06-26 06:16 | NUR ---
Problems reprioritized. Patient report given, questions answered & plan of care reviewed with JEANNIE Hall.
[2019-06-26] MEDS: pantoprazole 40 MG vial IV SCH (07:01)
[2019-06-26] MEDS: HYDROcodone/acetaminophen 5mg/325mg tablet PO PRN (07:01)
[2019-06-26 07:10] VITALS: BP 108/67
[2019-06-26] MEDS: K and/or MAG REPLACEMENT MC SCH (07:42)
[2019-06-26 11:00] VITALS: BP 101/65
[2019-06-26] MEDS ORDERED: FOLI0.4T2 PO (14:45)
[2019-06-26] MEDS ORDERED: THIA100T70 PO (14:45)
== END 2019-06-26 16:29 | disposition home or self-care (01) | DRG 282 ==
LOC: ER 10:47 → SUR 3N 14:19
PROVIDERS: ADMIT Family Medicine; ATTEND Family Medicine
PROC: 30233N1 Transfusion of Nonautologous Red Blood Cells into Peripheral Vein, Percutaneous Approach (ICD-10-PCS; principal; 2019-06-21)
PROC: BW211ZZ Computerized Tomography (CT Scan) of Abdomen and Pelvis using Low Osmolar Contrast (ICD-10-PCS; 2019-06-22)
PROC: 05HY33Z Insertion of Infusion Device into Upper Vein, Percutaneous Approach (ICD-10-PCS; 2019-06-22)
DX: K85.20 Alcohol induced acute pancreatitis without necrosis or infection (principal); E87.2 Acidosis; E87.1 Hypo-osmolality and hyponatremia; D16.9 Benign neoplasm of bone and articular cartilage, unspecified; F10.20 Alcohol dependence, uncomplicated; D50.0 Iron deficiency anemia secondary to blood loss (chronic); N92.0 Excessive and frequent menstruation with regular cycle; E87.6 Hypokalemia; F17.210 Nicotine dependence, cigarettes, uncomplicated; F32.9 Major depressive disorder, single episode, unspecified; F41.9 Anxiety disorder, unspecified; Z28.21 Immunization not carried out because of patient refusal
CPT/HCPCS: 36415; 36569; 74177; 76937; 80053; 80061; 80305; 81001; 81025; 82150; 82272; 82948; 83690; 83735; 84100; 84132; 84134; 84478; 85025; 85027; 85384; 85610; 86885; 86900; 86901; 86920; 87081; 90732; 96361; 96374; 96375; 97116; 97161; 97530; 99285; C9113; G0378; J0780; J1100; J1644; J2060; J2270; J2405; J3411; J3475; J3480; J3490; J7030; J7060; P9016; Q9967

== ENCOUNTER 2019-11-14 15:26 | Inpatient (IN) | payer MEDICAID ==
[~2019-11-14] VITALS: Ht 162.6 cm; Wt 71.8 kg
[~2019-11-14 15:26] MED LIST: THIA100T70 PO
[2019-11-14] MEDS ORDERED: ondansetron/PF 4mg/2ml inj IV ONE (15:50)
[2019-11-14] MEDS ORDERED: normal saline 1000ML IV soln IVB ONE (15:50)
[2019-11-14 16:39] LABS: BASOPHILS % (AUTO) 0.4 % (0-1); EOSINOPHILS # (AUTO) 0.1 X10'3 (0-0.9); EOSINOPHILS % (AUTO) 0.6 % (0-6); HEMATOCRIT 27.2 % (35.0-45.0); HEMOGLOBIN 8.4 g/dl (12.0-16.0); LYMPHOCYTES # (AUTO) 1.6 X10'3 (1.1-4.8); LYMPHOCYTES % (AUTO) 13.8 % (21-51); MEAN CORPUSCULAR HGB CONC 30.7 g/dL (33.0-36.5); MEAN CORPUSCULAR VOLUME 71.7 FL (78-98); MEAN PLATELET VOLUME 7.1 FL (7.4-10.4); MONOCYTES % (AUTO) 8.1 % (2-12); NEUTROPHILS # (AUTO) 9.1 X10'3 (1.8-7.7); NEUTROPHILS % (AUTO) 77.1 % (42-75); PLATELET COUNT 599 X10'3 (140-440); RED BLOOD COUNT 3.79 X10'6 (4.20-5.60); RED CELL DISTRIBUTION WIDTH 24.4 % (11.5-14.5); WHITE BLOOD COUNT 11.8 X10'3 (4.5-11.0)
[2019-11-14 16:57] LABS: ALANINE AMINOTRANSFERASE 9 U/L (12-78); ALBUMIN 2.1 G/DL (3.4-5.0); ALBUMIN/GLOBULIN RATIO 0.4 (1.1-1.5); ALKALINE PHOSPHATASE 102 IU/L (46-116); ANION GAP 8 (8-16); ASPARTATE AMINO TRANSFERASE 20 U/L (10-37); BILIRUBIN,TOTAL 0.4 MG/DL (0.1-1.0); BLOOD UREA NITROGEN 10 MG/DL (7-18); BUN/CREATININE RATIO 13.5 (6.6-38.0); CALCIUM 8.5 MG/DL (8.5-10.1); CHLORIDE 94 MMOL/L (99-107); CREATININE 0.74 MG/DL (0.40-0.90); GLUCOSE 112 MG/DL (70-104); LIPASE 1146 U/L (73-393); SODIUM 131 MMOL/L (135-145); TOTAL PROTEIN 6.8 G/DL (6.4-8.2); eGFR 86 ML/MIN
[2019-11-14 17:04] LABS: ANISOCYTOSIS 3+; HYPOCHROMASIA 2+; MICROCYTOSIS 1+; PLATELET ESTIMATE INCREASED; POLYCHROMASIA 1+
[2019-11-14 17:05] LABS: ELLIPTOCYTES FEW
[2019-11-14] MEDS ORDERED: potassium Cl 20 mEq SR tablet PO ONE (17:20)
[2019-11-14] MEDS: morphine 4 MG/ML inj SYRINge IV PRN ×3 (19:00→22:45)
[2019-11-14] MEDS ORDERED: NO HOME MEDS (19:06)
[2019-11-14] MEDS ORDERED: POTASSIUM BICARB 20meq eff tab 20 MEQ TABLET.EFF PO ONE (19:10)
[2019-11-14] MEDS ORDERED: POTASSIUM BICARB 20meq eff tab 20 MEQ TABLET.EFF PO SCH (19:10)
[2019-11-14] MEDS ORDERED: potassium CL 10mEq/100ml bag 100 ML IV PRN ×2 (19:25)
[2019-11-14] MEDS ORDERED: magnesium 4gm in 100ml NS 100 ML IV PRN (19:25)
[2019-11-14] MEDS ORDERED: potassium Cl 20 mEq SR tablet PO PRN (19:25)
[2019-11-14] MEDS ORDERED: acetaminophen 325mg tablet PO PRN (19:25)
[2019-11-14] MEDS ORDERED: magnesium Cl slow-release 64mg tablet PO PRN (19:25)
[2019-11-14] MEDS ORDERED: magnesium 2GM in 50ml NS 50 ML IV PRN (19:25)
[2019-11-14] MEDS: K and/or MAG REPLACEMENT MC SCH (20:00)
[2019-11-14] MEDS: normal saline 1000ml 1,000 ML IV SCH (20:06)
--- NOTE | 2019-11-14 23:25 | NUR ---
SBAR TO BERNA RN NO QUESTIONS OR CONCERNS AFTER ASSUMING CARE
[2019-11-14 23:30] VITALS: BP 102/75
--- NOTE | 2019-11-14 23:45 | NUR ---
Patient in room [facility]TH[facility] 4009. I have received report from Bharat-JEANNIE in ER, and had the opportunity to ask questions and assume patient care.
[2019-11-15] VITALS (8 sets, daily range): BP systolic 97–108; BP diastolic 62–77
[2019-11-15 02:26] LABS: URINE HCG NEGATIVE (NEG)
[2019-11-15 02:42] LABS: CLARITY,URINE CLOUDY (Clear); COLOR,URINE AMBER (Yellow); GLUCOSE, URINE 100 mg/dl (Neg); KETONES,URINE TRACE mg/dl (Neg); LEUKOCYTE ESTERASE ,URINE TRACE (Neg); NITRITES, URINE NEGATIVE (Neg); OCCULT BLOOD,URINE LARGE (Neg); PH,URINE 6.5 (4.8-8.0); PROTEIN,URINE 30 mg/dl (Neg); UROBILINOGEN,URINE >=8.0 E.U/dL (0.2-1.0)
[2019-11-15 02:48] LABS: UA COLLECTION TYPE NON-SPECIFIED
[2019-11-15 02:50] LABS: BACTERIA,URINE FEW /HPF (Neg); MUCUS STRANDS MANY /LPF (Neg); RBC,URINE TNTC /HPF (0-2); SQUAMOUS EPITHELIAL CELL,UR MODERATE /LPF (FEW)
[2019-11-15] MEDS: ondansetron/PF 4mg/2ml inj IV PRN ×3 (02:55→23:47)
[2019-11-15] MEDS: morphine 2 MG/ML inj. syringe IV PRN ×5 (02:56→16:59)
[2019-11-15] MEDS: normal saline 1000ml 1,000 ML IV SCH ×2 (05:24→15:51)
[2019-11-15 06:12] LABS: BASOPHILS % (AUTO) 0.3 % (0-1); EOSINOPHILS # (AUTO) 0.2 X10'3 (0-0.9); EOSINOPHILS % (AUTO) 2.3 % (0-6); HEMATOCRIT 22.2 % (35.0-45.0); LYMPHOCYTES % (AUTO) 13.1 % (21-51); MEAN CORPUSCULAR HEMOGLOBIN 22.2 PG (27.0-31.0); MEAN CORPUSCULAR HGB CONC 30.7 g/dL (33.0-36.5); MEAN CORPUSCULAR VOLUME 72.2 FL (78-98); MEAN PLATELET VOLUME 7.3 FL (7.4-10.4); MONOCYTES # (AUTO) 0.7 X10'3 (0-0.9); MONOCYTES % (AUTO) 10.1 % (2-12); NEUTROPHILS # (AUTO) 5.4 X10'3 (1.8-7.7); NEUTROPHILS % (AUTO) 74.2 % (42-75); PLATELET COUNT 436 X10'3 (140-440); RED BLOOD COUNT 3.08 X10'6 (4.20-5.60); RED CELL DISTRIBUTION WIDTH 24.7 % (11.5-14.5); WHITE BLOOD COUNT 7.2 X10'3 (4.5-11.0)
[2019-11-15 06:18] LABS: HEMOGLOBIN 6.8 g/dl (12.0-16.0)
[2019-11-15 06:24] LABS: ALBUMIN 1.6 G/DL (3.4-5.0); ANION GAP 7 (8-16); BLOOD UREA NITROGEN 9 MG/DL (7-18); BUN/CREATININE RATIO 13.2 (6.6-38.0); CALCIUM 7.4 MG/DL (8.5-10.1); CHLORIDE 98 MMOL/L (99-107); CREATININE 0.68 MG/DL (0.40-0.90); GLUCOSE 82 MG/DL (70-104); LIPASE 764 U/L (73-393); MAGNESIUM 1.7 MG/DL (1.5-2.4); SODIUM 136 MMOL/L (135-145); TOTAL CARBON DIOXIDE 30.7 MMOL/L (24-32); eGFR > 90 ML/MIN
[2019-11-15 06:27] LABS: POTASSIUM 2.9 MMOL/L (3.5-5.1)
--- NOTE | 2019-11-15 06:29 | NUR ---
PAGER ID: [phone] MESSAGE: Cecilio Ledesma 44 F Rm [id number], admitted for pancreatitis. last night Hemoglobin was 8.4, But this morning Hemoglobin came back critical being 6.8 and Hematocrit of 22.2. Patient is asymptomatic. K level is 2.9 this morning.
--- NOTE | 2019-11-15 06:36 | NUR ---
Problems reprioritized. Patient report given to Yady-JEANNIE, questions answered & plan of care reviewed with . Yady also notified regarding the Hemoglobin being 6.8 and K of 2.9. The hospitalist is paged for the critical values. Waiting for call back.
--- NOTE | 2019-11-15 06:43 | NUR ---
SPOKE WITH DR CHAN RE HGB 6.8. STATES THAT THE DAY SHIFT MD WILL HAVE TO SIGN BLOOD CONSENT. WILL NOTIFY ONCOMING MD.
[2019-11-15] MEDS: levoFLOXACIN-Levaquin 500mg/D5 100 ML IV SCH (07:17)
[2019-11-15] MEDS: pantoprazole 40 MG vial IV SCH (07:27)
[2019-11-15] MEDS: K and/or MAG REPLACEMENT MC SCH ×2 (08:00→20:00)
--- NOTE | 2019-11-15 08:28 | NUR ---
Paged Dr. Lopez PAGER ID: [phone] MESSAGE: RE: [id number] Callie VICENTE. Hgb 6.8 Do you want to order blood? Brenda [id number]
[2019-11-15] MEDS ORDERED: LORazepam 2 mg/ml vial IM ONE (09:15)
[2019-11-15] MEDS ORDERED: LORazepam 2 mg/ml vial IV ONE (09:20)
--- NOTE | 2019-11-15 12:10 | NUR ---
Student documentation: I have reviewed all interventions, assessments performed and documented by Derick Roblero. Student Medication Administration: For this medication-pass time frame, all medication were reviewed, dispensed, administered and documented per hospital policy by Derick Roblero.
[2019-11-15] MEDS: potassium Cl 20 mEq SR tablet PO PRN ×2 (12:58→17:03)
[2019-11-15] MEDS ORDERED: gadobutrol 10mmol/10ml inj. IV ONE (13:08)
--- NOTE | 2019-11-15 13:50 | NUR ---
Accidentally clicked on morphine medication administration instead of clicking reassess status. It reflected administered, but no Morphine was administered. Discussed with primary nurse Yady DENNIS and instructor Jacquelin Johnson RN. Unable to undo the incorrect documentation; this is why I'm leaving a note. Jen Everett RN-S Addendum: 11/15/19 at 1824 by Jen Everett STUDENT [facility] Amended: Links added.
[2019-11-15] MEDS: nicotine 14mg patch - 24hr TD SCH (13:57)
--- NOTE | 2019-11-15 15:02 | NUR ---
PAGER ID: [phone] MESSAGE: JOSE VICENTE. C/O PAIN. 1 MG MORPHINE NOT WORKING. ORTHO SHEA [id number]
[2019-11-15 16:03] LABS: HEMOGLOBIN 8.4 g/dl (12.0-16.0); MEAN CORPUSCULAR HEMOGLOBIN 23.2 PG (27.0-31.0); MEAN CORPUSCULAR HGB CONC 31.3 g/dL (33.0-36.5); MEAN PLATELET VOLUME 7.4 FL (7.4-10.4); PLATELET COUNT 474 X10'3 (140-440); RED BLOOD COUNT 3.65 X10'6 (4.20-5.60); RED CELL DISTRIBUTION WIDTH 24.5 % (11.5-14.5); WHITE BLOOD COUNT 7.7 X10'3 (4.5-11.0)
--- NOTE | 2019-11-15 18:22 | NUR ---
Received report from JEANNIE Conteh. Patient is awake and alert on room air, in no apparent distress. Call light and items of frequent use within reach. Will continue to monitor.
--- NOTE | 2019-11-15 18:39 | NUR ---
Problems reprioritized. Patient report given, questions answered & plan of care reviewed with BELEM DENNIS.
[2019-11-15] MEDS: HYDROcodone/acetaminophen 10/325mg tab PO PRN (19:08)
[2019-11-15] MEDS ORDERED: Potassium Cl inj 20 MEQ in normal saline 1000ml 990 ML IV SCH (19:25)
[2019-11-15] MEDS: HYDROmorphone 1 mg/ml syringe IV PRN (21:30)
[2019-11-15] MEDS: potassium Cl 20mEq in NS 1,000 ML IV SCH (21:58)
[2019-11-16] MEDS: HYDROmorphone 1 mg/ml syringe IV PRN ×5 (03:20→20:11)
[2019-11-16] MEDS: ondansetron/PF 4mg/2ml inj IV PRN ×3 (05:59→20:09)
--- NOTE | 2019-11-16 06:08 | NUR ---
Reported off to JEANNIE Beverly. Patient resting comfortably.
[2019-11-16 06:10] VITALS: BP 98/69
--- NOTE | 2019-11-16 06:10 | NUR ---
Patient in room ORTHO 4021. I have received report from Sierra DENNIS and had the opportunity to ask questions and assume patient care.
[2019-11-16 06:34] LABS: ALBUMIN 1.7 G/DL (3.4-5.0); ANION GAP 10 (8-16); BLOOD UREA NITROGEN 10 MG/DL (7-18); BUN/CREATININE RATIO 17.2 (6.6-38.0); CALCIUM 8.2 MG/DL (8.5-10.1); CHLORIDE 103 MMOL/L (99-107); CREATININE 0.58 MG/DL (0.40-0.90); GLUCOSE 88 MG/DL (70-104); MAGNESIUM 1.8 MG/DL (1.5-2.4); POTASSIUM 4.8 MMOL/L (3.5-5.1); SODIUM 136 MMOL/L (135-145); TOTAL CARBON DIOXIDE 23.5 MMOL/L (24-32); eGFR > 90 ML/MIN
[2019-11-16 06:40] LABS: EOSINOPHILS # (AUTO) 0.1 X10'3 (0-0.9); EOSINOPHILS % (AUTO) 1.6 % (0-6); HEMOGLOBIN 8.1 g/dl (12.0-16.0); MEAN PLATELET VOLUME 7.2 FL (7.4-10.4); MONOCYTES # (AUTO) 0.6 X10'3 (0-0.9); RED CELL DISTRIBUTION WIDTH 24.1 % (11.5-14.5)
[2019-11-16 06:41] LABS: BASOPHILS % (AUTO) 0.2 % (0-1); HEMATOCRIT 25.9 % (35.0-45.0); LYMPHOCYTES % (AUTO) 14.8 % (21-51); MEAN CORPUSCULAR HEMOGLOBIN 23.4 PG (27.0-31.0); MEAN CORPUSCULAR HGB CONC 31.3 g/dL (33.0-36.5); MEAN CORPUSCULAR VOLUME 74.8 FL (78-98); NEUTROPHILS # (AUTO) 5.2 X10'3 (1.8-7.7); NEUTROPHILS % (AUTO) 74.4 % (42-75); PLATELET COUNT 456 X10'3 (140-440); RED BLOOD COUNT 3.47 X10'6 (4.20-5.60)
[2019-11-16] MEDS: potassium Cl 20mEq in NS 1,000 ML IV SCH ×2 (07:15→20:15)
[2019-11-16] MEDS: pantoprazole 40 MG vial IV SCH (07:15)
[2019-11-16] MEDS: levoFLOXACIN-Levaquin 500mg/D5 100 ML IV SCH (07:16)
[2019-11-16] MEDS: nicotine 14mg patch - 24hr TD SCH ×2 (07:29→15:53)
[2019-11-16] MEDS: K and/or MAG REPLACEMENT MC SCH ×2 (08:00→20:00)
[2019-11-16] MEDS: HYDROcodone/acetaminophen 10/325mg tab PO PRN ×3 (08:41→17:38)
[2019-11-16 08:55] LABS: PLATELET ESTIMATE INCREASED
[2019-11-16 08:56] LABS: ANISOCYTOSIS 3+; ELLIPTOCYTES FEW; MICROCYTOSIS 1+
[2019-11-16 08:57] LABS: BURR CELLS FEW; HYPOCHROMASIA 1+; POLYCHROMASIA FEW
[2019-11-16 10:00] VITALS: BP 101/67
[2019-11-16 11:00] VITALS: BP 97/71
[2019-11-16 11:16] VITALS: BP 90/60
[2019-11-16] MEDS ORDERED: albumin (human) 25% 100 ML IV solution IV ONE (11:45)
[2019-11-16 12:26] LABS: GLUCOSE,BODY FLUID 82 MG/DL; LDH,BODY FLUID 89 U/L; TOTAL PROTEIN,BODY FLUID 2.2 G/DL
[2019-11-16 12:43] LABS: EOSINOPHILS,BODY FLUID 2 %; LYMPHOCYTES,BODY FLUID 40 %; MONOCYTES,BODY FLUID 35 %; NEUTROPHILS,BODY FLUID 23 %
[2019-11-16 12:45] LABS: BF RBC COUNT 2675 /CU MM; BF WBC COUNT 126 /CU MM (0-1000); BFAPPEAR CLOUDY; BFCOLOR YELLOW; BFVOLUME 50 ML
[2019-11-16] MEDS ORDERED: iohexol 300mg/ml 100ml inj. ONE (15:59)
[2019-11-16] MEDS: proMETHazine 6.25 mg/5 ml UD oral syrup PO PRN (17:40)
[2019-11-16 18:00] VITALS: BP 91/60
--- NOTE | 2019-11-16 18:33 | NUR ---
Patient in room ORTHO 4021. I have received report from Siria DENNIS and had the opportunity to ask questions and assume patient care.
--- NOTE | 2019-11-16 18:34 | NUR ---
Problems reprioritized. Patient report given, questions answered & plan of care reviewed with Felecia DENNIS.
[2019-11-16] MEDS: Melatonin 3mg tablet PO SCH (20:09)
[2019-11-16] MEDS ORDERED: diatr meglu/diatrizoate 30ml oral sol.-(3 dose) bottle PO SCH (21:00)
[2019-11-16 22:00] VITALS: BP 113/65
[2019-11-17] MEDS: ondansetron/PF 4mg/2ml inj IV PRN ×4 (03:47→21:40)
[2019-11-17] MEDS: HYDROcodone/acetaminophen 10/325mg tab PO PRN ×4 (03:47→23:38)
--- NOTE | 2019-11-17 06:08 | NUR ---
Problems reprioritized. Patient report given, questions answered & plan of care reviewed with Siria DENNIS.
[2019-11-17 06:10] VITALS: BP 95/54
--- NOTE | 2019-11-17 06:35 | NUR ---
Patient in room ORTHO 4021. I have received report from Felecia DENNIS and had the opportunity to ask questions and assume patient care.
[2019-11-17 07:26] LABS: ALBUMIN 1.7 G/DL (3.4-5.0); ANION GAP 7 (8-16); BLOOD UREA NITROGEN 6 MG/DL (7-18); BUN/CREATININE RATIO 9.1 (6.6-38.0); CALCIUM 7.6 MG/DL (8.5-10.1); CHLORIDE 105 MMOL/L (99-107); CREATININE 0.66 MG/DL (0.40-0.90); GLUCOSE 133 MG/DL (70-104); LIPASE 408 U/L (73-393); MAGNESIUM 1.6 MG/DL (1.5-2.4); SODIUM 136 MMOL/L (135-145); TOTAL CARBON DIOXIDE 23.8 MMOL/L (24-32); eGFR > 90 ML/MIN
[2019-11-17 07:27] LABS: BASOPHILS % (AUTO) 0.2 % (0-1); EOSINOPHILS # (AUTO) 0.1 X10'3 (0-0.9); EOSINOPHILS % (AUTO) 1.9 % (0-6); HEMATOCRIT 23.8 % (35.0-45.0); HEMOGLOBIN 7.4 g/dl (12.0-16.0); LYMPHOCYTES # (AUTO) 0.5 X10'3 (1.1-4.8); LYMPHOCYTES % (AUTO) 9.2 % (21-51); MEAN CORPUSCULAR HEMOGLOBIN 23.2 PG (27.0-31.0); MEAN CORPUSCULAR HGB CONC 31.1 g/dL (33.0-36.5); MEAN CORPUSCULAR VOLUME 74.5 FL (78-98); MEAN PLATELET VOLUME 7.1 FL (7.4-10.4); MONOCYTES # (AUTO) 0.4 X10'3 (0-0.9); MONOCYTES % (AUTO) 7.8 % (2-12); NEUTROPHILS # (AUTO) 4.5 X10'3 (1.8-7.7); NEUTROPHILS % (AUTO) 80.9 % (42-75); PLATELET COUNT 459 X10'3 (140-440); RED CELL DISTRIBUTION WIDTH 23.8 % (11.5-14.5); WHITE BLOOD COUNT 5.6 X10'3 (4.5-11.0)
[2019-11-17] MEDS: K and/or MAG REPLACEMENT MC SCH ×2 (08:00→19:39)
[2019-11-17] MEDS: levoFLOXACIN-Levaquin 500mg/D5 100 ML IV SCH (08:56)
[2019-11-17] MEDS: HYDROmorphone 1 mg/ml syringe IV PRN ×3 (09:01→21:32)
[2019-11-17] MEDS: potassium Cl 20mEq in NS 1,000 ML IV SCH ×2 (09:07→21:32)
[2019-11-17] MEDS: nicotine 14mg patch - 24hr TD SCH (09:10)
[2019-11-17 10:00] VITALS: BP 105/64
[2019-11-17] MEDS: pantoprazole 40 MG vial IV SCH (10:07)
[2019-11-17 10:34] LABS: ANISOCYTOSIS 3+; HYPOCHROMASIA 1+; MICROCYTOSIS 1+; PLATELET ESTIMATE INCREASED; POLYCHROMASIA 1+
[2019-11-17 10:35] LABS: ACANTHOCYTES 1+; ELLIPTOCYTES 1+; TARGET CELLS FEW
[2019-11-17] MEDS: proMETHazine 6.25 mg/5 ml UD oral syrup PO PRN (12:34)
[2019-11-17 18:00] VITALS: BP 95/58
--- NOTE | 2019-11-17 18:17 | NUR ---
Problems reprioritized. Patient report given, questions answered & plan of care reviewed with Felecia DENNIS.
--- NOTE | 2019-11-17 18:20 | NUR ---
Patient in room ORTHO 4021. I have received report from Siria DENNIS and had the opportunity to ask questions and assume patient care.
[2019-11-17] MEDS: lactobacillus rhamnosus 10,000 MMU CELLS/CAPSULE PO SCH (19:36)
[2019-11-17] MEDS: magnesium hydroxide 30ml (MOM) UD suspension PO PRN (19:36)
[2019-11-17] MEDS: Melatonin 3mg tablet PO SCH (21:32)
[2019-11-17 22:00] VITALS: BP 95/65
[2019-11-18] MEDS: HYDROmorphone 1 mg/ml syringe IV PRN (05:04)
[2019-11-18] MEDS: ondansetron/PF 4mg/2ml inj IV PRN ×3 (05:11→18:56)
--- NOTE | 2019-11-18 06:09 | NUR ---
Problems reprioritized. Patient report given, questions answered & plan of care reviewed with Siria DENNIS.
[2019-11-18 06:10] VITALS: BP 107/59
--- NOTE | 2019-11-18 06:38 | NUR ---
Patient in room ORTHO 4021. I have received report from Felecia DENNIS and had the opportunity to ask questions and assume patient care.
[2019-11-18 06:50] LABS: ALANINE AMINOTRANSFERASE 8 U/L (12-78); ALBUMIN 1.5 G/DL (3.4-5.0); ALBUMIN/GLOBULIN RATIO 0.4 (1.1-1.5); ALKALINE PHOSPHATASE 67 IU/L (46-116); ANION GAP 7 (8-16); ASPARTATE AMINO TRANSFERASE 18 U/L (10-37); BILIRUBIN,TOTAL 0.2 MG/DL (0.1-1.0); BLOOD UREA NITROGEN 4 MG/DL (7-18); BUN/CREATININE RATIO 7.5 (6.6-38.0); CALCIUM 7.5 MG/DL (8.5-10.1); CHLORIDE 104 MMOL/L (99-107); CREATININE 0.53 MG/DL (0.40-0.90); GLUCOSE 95 MG/DL (70-104); LIPASE 403 U/L (73-393); MAGNESIUM 1.4 MG/DL (1.5-2.4); POTASSIUM 4.2 MMOL/L (3.5-5.1); SODIUM 134 MMOL/L (135-145); TOTAL CARBON DIOXIDE 22.9 MMOL/L (24-32); TOTAL PROTEIN 4.9 G/DL (6.4-8.2); eGFR > 90 ML/MIN
[2019-11-18] MEDS: HYDROcodone/acetaminophen 10/325mg tab PO PRN ×4 (06:50→23:47)
[2019-11-18 06:55] LABS: BASOPHILS % (AUTO) 0.3 % (0-1); EOSINOPHILS # (AUTO) 0.1 X10'3 (0-0.9); HEMOGLOBIN 7.2 g/dl (12.0-16.0); MONOCYTES # (AUTO) 0.4 X10'3 (0-0.9); RED CELL DISTRIBUTION WIDTH 24.5 % (11.5-14.5); WHITE BLOOD COUNT 3.5 X10'3 (4.5-11.0)
[2019-11-18 07:04] LABS: EOSINOPHILS % (AUTO) 3.5 % (0-6); HEMATOCRIT 22.2 % (35.0-45.0); LYMPHOCYTES # (AUTO) 0.4 X10'3 (1.1-4.8); LYMPHOCYTES % (AUTO) 12.5 % (21-51); MEAN CORPUSCULAR HEMOGLOBIN 24.2 PG (27.0-31.0); MEAN CORPUSCULAR HGB CONC 32.4 g/dL (33.0-36.5); MEAN CORPUSCULAR VOLUME 74.6 FL (78-98); MONOCYTES % (AUTO) 10.9 % (2-12); NEUTROPHILS # (AUTO) 2.6 X10'3 (1.8-7.7); NEUTROPHILS % (AUTO) 72.8 % (42-75); PLATELET COUNT 399 X10'3 (140-440); RED BLOOD COUNT 2.97 X10'6 (4.20-5.60)
[2019-11-18] MEDS ORDERED: magnesium 4gm in 100ml NS 100 ML IV PRN (07:25)
[2019-11-18] MEDS ORDERED: magnesium 2GM in 50ml NS 50 ML IV PRN (07:25)
[2019-11-18] MEDS ORDERED: potassium Cl 20 mEq SR tablet PO PRN ×2 (07:25)
[2019-11-18] MEDS ORDERED: potassium CL 10mEq/100ml bag 100 ML IV PRN (07:25)
[2019-11-18] MEDS ORDERED: magnesium Cl slow-release 64mg tablet PO PRN (07:25)
[2019-11-18 07:45] LABS: ANISOCYTOSIS 3+; HYPOCHROMASIA 1+; MICROCYTOSIS 1+; PLATELET ESTIMATE NORMAL; POIKILOCYTOSIS FEW; POLYCHROMASIA FEW
[2019-11-18] MEDS: levoFLOXACIN-Levaquin 500mg/D5 100 ML IV SCH (07:50)
[2019-11-18] MEDS: nicotine 14mg patch - 24hr TD SCH (07:51)
[2019-11-18] MEDS: lactobacillus rhamnosus 10,000 MMU CELLS/CAPSULE PO SCH ×2 (07:51→21:42)
[2019-11-18] MEDS: pantoprazole 40mg Tablet.DR PO SCH (07:53)
[2019-11-18] MEDS: proMETHazine 6.25 mg/5 ml UD oral syrup PO PRN ×3 (07:54→23:48)
[2019-11-18] MEDS: potassium Cl 20mEq in NS 1,000 ML IV SCH ×2 (07:54→23:47)
[2019-11-18] MEDS: magnesium hydroxide 30ml (MOM) UD suspension PO PRN (07:54)
[2019-11-18] MEDS: K and/or MAG REPLACEMENT MC SCH ×3 (08:00→20:00)
[2019-11-18 10:00] VITALS: BP 92/59
[2019-11-18 10:28] VITALS: BP 92/59
[2019-11-18] MEDS ORDERED: morphine 2 MG/ML inj. syringe IV PRN (12:20)
[2019-11-18] MEDS ORDERED: HYDROcodone/acetaminophen 5mg/325mg tablet PO PRN (12:20)
[2019-11-18] MEDS: morphine 2 MG/ML inj. syringe IV PRN ×2 (14:10→18:56)
[2019-11-18 18:00] VITALS: BP 98/58
--- NOTE | 2019-11-18 18:41 | NUR ---
Problems reprioritized. Patient report given, questions answered & plan of care reviewed with Katey DENNIS.
--- NOTE | 2019-11-18 19:14 | NUR ---
Patient in room ORTHO 4021. I have received report from Siria DENNIS and had the opportunity to ask questions and assume patient care.
[2019-11-18] MEDS: Melatonin 3mg tablet PO SCH (21:41)
[2019-11-18 22:00] VITALS: BP 96/63
[2019-11-19] MEDS: ondansetron/PF 4mg/2ml inj IV PRN ×2 (03:19→12:26)
[2019-11-19] MEDS: HYDROcodone/acetaminophen 10/325mg tab PO PRN ×3 (05:07→21:01)
[2019-11-19 06:00] VITALS: BP 93/58
--- NOTE | 2019-11-19 06:27 | NUR ---
Problems reprioritized. Patient report given, questions answered & plan of care reviewed with JEANNIE Payne.
--- NOTE | 2019-11-19 06:30 | NUR ---
RECEIVED REPORT FROM JEANNIE JOSEPH
[2019-11-19] MEDS: pantoprazole 40mg Tablet.DR PO SCH (07:54)
[2019-11-19] MEDS: nicotine 14mg patch - 24hr TD SCH (07:55)
[2019-11-19] MEDS: lactobacillus rhamnosus 10,000 MMU CELLS/CAPSULE PO SCH ×2 (07:57→21:00)
[2019-11-19] MEDS: K and/or MAG REPLACEMENT MC SCH ×3 (08:00→20:00)
[2019-11-19 08:02] LABS: EOSINOPHILS # (AUTO) 0.1 X10'3 (0-0.9); HEMOGLOBIN 7.5 g/dl (12.0-16.0); MEAN CORPUSCULAR VOLUME 74.7 FL (78-98); MONOCYTES # (AUTO) 0.3 X10'3 (0-0.9); WHITE BLOOD COUNT 3.2 X10'3 (4.5-11.0)
[2019-11-19 08:04] LABS: BASOPHILS % (AUTO) 0.4 % (0-1); EOSINOPHILS % (AUTO) 2.2 % (0-6); HEMATOCRIT 23.7 % (35.0-45.0); LYMPHOCYTES # (AUTO) 0.5 X10'3 (1.1-4.8); LYMPHOCYTES % (AUTO) 15.9 % (21-51); MEAN CORPUSCULAR HEMOGLOBIN 23.7 PG (27.0-31.0); MEAN CORPUSCULAR HGB CONC 31.8 g/dL (33.0-36.5); MEAN PLATELET VOLUME 6.9 FL (7.4-10.4); MONOCYTES % (AUTO) 10.4 % (2-12); NEUTROPHILS # (AUTO) 2.3 X10'3 (1.8-7.7); NEUTROPHILS % (AUTO) 71.1 % (42-75); PLATELET COUNT 435 X10'3 (140-440); RED BLOOD COUNT 3.18 X10'6 (4.20-5.60); RED CELL DISTRIBUTION WIDTH 24.8 % (11.5-14.5)
[2019-11-19] MEDS: proMETHazine 6.25 mg/5 ml UD oral syrup PO PRN ×2 (08:07→15:12)
[2019-11-19 08:14] LABS: ALBUMIN 1.5 G/DL (3.4-5.0); ANION GAP 7 (8-16); BLOOD UREA NITROGEN 5 MG/DL (7-18); BUN/CREATININE RATIO 7.7 (6.6-38.0); CALCIUM 7.4 MG/DL (8.5-10.1); CHLORIDE 106 MMOL/L (99-107); CREATININE 0.65 MG/DL (0.40-0.90); GLUCOSE 89 MG/DL (70-104); LIPASE 284 U/L (73-393); MAGNESIUM 1.7 MG/DL (1.5-2.4); POTASSIUM 4.1 MMOL/L (3.5-5.1); SODIUM 136 MMOL/L (135-145); TOTAL CARBON DIOXIDE 23.2 MMOL/L (24-32); eGFR > 90 ML/MIN
[2019-11-19 09:15] LABS: PLATELET ESTIMATE NORMAL
[2019-11-19 09:16] LABS: ANISOCYTOSIS 3+; HYPOCHROMASIA 1+; MICROCYTOSIS 1+; POLYCHROMASIA 1+
[2019-11-19 09:17] LABS: ACANTHOCYTES 1+; ELLIPTOCYTES 1+; SCHISTOCYTES FEW; TARGET CELLS 1+
[2019-11-19 10:00] VITALS: BP 149/47
[2019-11-19] MEDS: potassium Cl 20mEq in NS 1,000 ML IV SCH (12:22)
[2019-11-19] MEDS ORDERED: metoclopramide 5 mg/ml inj IV ONE (17:25)
[2019-11-19] MEDS: magnesium hydroxide 30ml (MOM) UD suspension PO PRN (17:44)
--- NOTE | 2019-11-19 17:45 | NUR ---
SPOKE w COKE PRODUCTION HEATER ABOUT POSSIBLY CHANGING PTS DIET PER PT REQUEST, PT TELLS ME THAT HER PUREED DIET DOES NOT TASTE GOOD, COKE PRODUCTION HEATER SAID THAT IT WOULD BE A GOOD IDEA TO CHANGE DIET TO REGULAR LOW FAT DIET AND ADD THIAMINE, FOLIC ACID, MULTIVITAMIN AND PROBIOTIC TO HER MEDICATION, REGIME, I EDU HIRSCH, SAID TO PLEASE KEEP HER DIET PUREED AND TO NOT ADD ANY MEDICATIONS TO HER MEDICATION REGIME
[2019-11-19 18:00] VITALS: BP 97/60
--- NOTE | 2019-11-19 18:22 | NUR ---
RECEIVED REPORT FROM KIARA DENNIS AND ASSUMED PATIENT CARE Addendum: 11/19/19 at 1944 by Neena Goldberg RN did not assume care of patient. incorrect patient.
--- NOTE | 2019-11-19 18:28 | NUR ---
GAVE REPORT TO JEANNIE AZUL
--- NOTE | 2019-11-19 18:30 | NUR ---
Patient in room ORTHO 4021. I have received report from Kerry DENNIS and had the opportunity to ask questions and assume patient care.
--- NOTE | 2019-11-19 18:38 | NUR ---
Initial: Pt admit w/ etoh pancreatitis and ascites s/p 6300ml paracentesis removal. Hx etoh and L2 osteoblastoma. CT shows pancreatitis w/ possible pseudocysts per MD note. Pt PO 25% on clears advanced to pureed diet; pt is declining pureed diet and wants solid foods per RN. Pt has no hx dysphagia. RD d/w RN regarding advancement to low fat diet, thiamin/folic/MVI given etoh, and holding probiotic given WBC 3.2 per MD approval. Lipase WNL down from 1146 on admit; pt does still have abdominal pain. No lipid panel this admit. LBM 11/17. Will monitor for diet advancement and PO diet tolerance this admit. IF unable to tolerate PO meals w/ pancreatitis would benefit from post-pyloric corpak EN in proximal jejunum to meet nutrition needs without stimulating pancreas. Rec: 1. advance diet per MD to low fat 2. bowel care as needed 3. pancreatitis diet ed once stable prior to d/c 4. wt per rx 5. thiamin, folic, MVI for etoh hx and hold probiotic w/ WBC 3.2 per MD approval 6. IF unable to tolerate PO; corpak post-pyloric EN in proximal jejunum to meet nutrition needs without stimulating pancreas per MD approval Addendum: 11/19/19 at [address] Amended: Links added.
[2019-11-19] MEDS: Melatonin 3mg tablet PO SCH (21:00)
[2019-11-19 22:00] VITALS: BP 106/76
[2019-11-20] MEDS: potassium Cl 20mEq in NS 1,000 ML IV SCH ×2 (03:00→16:33)
[2019-11-20 06:00] VITALS: BP 93/50
--- NOTE | 2019-11-20 06:51 | NUR ---
Patient in room ORTHO 4021B. I have received report from JEANNIE Kelley and had the opportunity to ask questions and assume patient care.
--- NOTE | 2019-11-20 06:51 | NUR ---
Report given to Chandni DENNIS.
[2019-11-20] MEDS: pantoprazole 40mg Tablet.DR PO SCH (07:18)
[2019-11-20] MEDS: HYDROcodone/acetaminophen 10/325mg tab PO PRN ×4 (07:19→21:45)
[2019-11-20] MEDS: lactobacillus rhamnosus 10,000 MMU CELLS/CAPSULE PO SCH ×2 (07:19→21:45)
[2019-11-20] MEDS: magnesium hydroxide 30ml (MOM) UD suspension PO PRN (07:19)
[2019-11-20] MEDS: ondansetron/PF 4mg/2ml inj IV PRN ×3 (07:23→21:45)
[2019-11-20] MEDS: nicotine 14mg patch - 24hr TD SCH (07:35)
[2019-11-20] MEDS: K and/or MAG REPLACEMENT MC SCH ×3 (08:00→20:00)
[2019-11-20 10:00] VITALS: BP 99/66
[2019-11-20 11:00] VITALS: BP 119/72
[2019-11-20] MEDS ORDERED: albumin (human) 25% 100 ML IV solution IV ONE (11:15)
[2019-11-20 11:22] VITALS: BP 101/66
--- NOTE | 2019-11-20 12:44 | NUR ---
PAGER ID: [phone] MESSAGE: HU [id number]-RE: JOSE VICENTE [id number]...CAN PT HAVE REGULAR DIET LUNCH TRAY, NOT PUREED?
[2019-11-20 18:00] VITALS: BP 91/53
--- NOTE | 2019-11-20 18:40 | NUR ---
Patient in room ORTHO 4021. I have received report from HU DENNIS and had the opportunity to ask questions and assume patient care. Addendum: 11/20/19 at 1940 by Alexandra Miranda RN Amended: Links added.
--- NOTE | 2019-11-20 20:20 | NUR ---
pt found with hot pad to her back. pt teaching done regarding that and explained hospital policy regarding it. took it out from under her after offering a warm pack for her back. heating pad put with her belongings and given a warm pack of warm wet wash cloths double bagged and in a pillow case. noted pt has skin to back reddish pink in color and mottled from the heating pad.
--- NOTE | 2019-11-20 21:30 | NUR ---
pt awake took hs meds and tolerated well.
[2019-11-20] MEDS: Melatonin 3mg tablet PO SCH (21:45)
[2019-11-20 22:00] VITALS: BP 98/61
--- NOTE | 2019-11-20 22:00 | NUR ---
pt resting without changes appears comfortable.
--- NOTE | 2019-11-21 00:15 | NUR ---
resting without s&s of distress at this time.
--- NOTE | 2019-11-21 02:16 | NUR ---
resting eyes closed without changes.
[2019-11-21] MEDS: potassium Cl 20mEq in NS 1,000 ML IV SCH (02:44)
[2019-11-21] MEDS: HYDROcodone/acetaminophen 10/325mg tab PO PRN ×2 (02:45→08:25)
--- NOTE | 2019-11-21 02:45 | NUR ---
pt awoke c/o pain to her back and medicated for this with norco and new bag of iv fluids hung on her at this time.
--- NOTE | 2019-11-21 04:15 | NUR ---
resting eyes closed appears comfortable.
[2019-11-21 05:00] VITALS: BP 94/51
--- NOTE | 2019-11-21 05:45 | NUR ---
Student Medication Administration: For this medication-pass time frame, all medication were reviewed, dispensed, administered and documented per hospital policy by SARA CORONA RN STUDENT. Addendum: 11/21/19 at 0546 by Alexandra Miranda RN Amended: Links added.
--- NOTE | 2019-11-21 06:29 | NUR ---
Problems reprioritized. Patient report given, questions answered & plan of care reviewed with HU DENNIS. Addendum: 11/21/19 at 0630 by Alexandra Miranda RN Amended: Links added.
--- NOTE | 2019-11-21 07:03 | NUR ---
Patient in room ORTHO 4021B. I have received report from JEANNIE JORGE and had the opportunity to ask questions and assume patient care.
[2019-11-21] MEDS: K and/or MAG REPLACEMENT MC SCH ×2 (07:25)
[2019-11-21] MEDS: pantoprazole 40mg Tablet.DR PO SCH (08:24)
[2019-11-21] MEDS: lactobacillus rhamnosus 10,000 MMU CELLS/CAPSULE PO SCH (08:24)
[2019-11-21] MEDS: magnesium hydroxide 30ml (MOM) UD suspension PO PRN (08:25)
[2019-11-21] MEDS: ondansetron/PF 4mg/2ml inj IV PRN (08:26)
[2019-11-21] MEDS: nicotine 14mg patch - 24hr TD SCH (08:34)
[2019-11-21 10:00] VITALS: BP 92/55
[2019-11-21] MEDS ORDERED: SPIR25TA5 PO (10:27)
[2019-11-21] MEDS ORDERED: THIA100T70 PO (10:27)
[2019-11-21] MEDS ORDERED: PANT-47 PO (10:27)
[2019-11-21] MEDS ORDERED: FOLI0.4T2 PO (10:27)
--- NOTE | 2019-11-21 12:20 | NUR ---
F/u: Pt seen by MURTAZA for written/verbal pancreatitis diet ed w/ RD contact information provided. MURTAZA encouraged lower etoh diet given pancreatitis hx; pt is pleasant and agreeable to recs at this time. Addendum: 11/21/19 at [address] Amended: Links added.
--- NOTE | 2019-11-21 12:45 | NUR ---
PT DC, WENT OVER DC INSTRUCTIONS WITH PT AND UNDERSTANDS DC INSTRUCTIONS, WHEELED DOWN TO PRIVATE VEHICLE WITH FAMILY MEMBER IN STABLE CONDITION.
== END 2019-11-21 12:45 | disposition home or self-care (01) | DRG 282 ==
LOC: ER 15:27 → ED HOLD 19:24 → ORTHO 4S 23:30 → CMPBEDREQ 11-15 00:13
PROVIDERS: ADMIT Internal Medicine; ATTEND Family Medicine
PROC: 30233N1 Transfusion of Nonautologous Red Blood Cells into Peripheral Vein, Percutaneous Approach (ICD-10-PCS; principal; 2019-11-15)
PROC: 0W9G3ZZ Drainage of Peritoneal Cavity, Percutaneous Approach (ICD-10-PCS; 2019-11-16)
PROC: BW211ZZ Computerized Tomography (CT Scan) of Abdomen and Pelvis using Low Osmolar Contrast (ICD-10-PCS; 2019-11-16)
PROC: 0W9G3ZZ Drainage of Peritoneal Cavity, Percutaneous Approach (ICD-10-PCS; 2019-11-20)
DX: K85.20 Alcohol induced acute pancreatitis without necrosis or infection (principal); R18.8 Other ascites; D16.9 Benign neoplasm of bone and articular cartilage, unspecified; E87.6 Hypokalemia; F17.210 Nicotine dependence, cigarettes, uncomplicated; F10.20 Alcohol dependence, uncomplicated; G89.29 Other chronic pain; F32.9 Major depressive disorder, single episode, unspecified; F41.9 Anxiety disorder, unspecified; D64.9 Anemia, unspecified; Z71.41 Alcohol abuse counseling and surveillance of alcoholic
CPT/HCPCS: 36415; 36430; 49083; 71045; 72158; 74177; 76700; 80048; 80053; 81001; 81025; 82945; 83605; 83615; 83690; 83735; 84132; 84145; 84157; 85025; 85027; 85610; 86885; 86900; 86901; 86920; 87040; 87070; 87081; 87088; 89051; 93005; 97161; 97530; 99285; A9585; C9113; G0378; J1170; J1956; J2060; J2270; J2405; J2765; J3480; J7030; P9016; P9047; Q0169; Q9967

== ENCOUNTER 2019-12-25 06:31 | Day surgery (SDC) | payer MEDICAID ==
[2019-12-25] VITALS (20 sets, daily range): BP systolic 96–119; BP diastolic 43–89
[~2019-12-25] VITALS: Ht 157.5 cm; Wt 62.7 kg
[~2019-12-25 06:31] MED LIST changes: +PANT-47 PO; +SPIR25TA5 PO
[2019-12-25] MEDS ORDERED: normal saline 1000ml 1,000 ML IV PRN (07:00)
[2019-12-25] MEDS ORDERED: albumin 25% 100mL bottle x 1 IV PRN (07:00)
[2019-12-25] MEDS ORDERED: METO5TAB85 PO (07:29)
[2019-12-25] MEDS ORDERED: SUCR1TAB PO (07:29)
[2019-12-25] MEDS ORDERED: LIPA1CAP31 (07:29)
[2019-12-25] MEDS ORDERED: PANT40TA4 PO (07:29)
[2019-12-25] MEDS ORDERED: NICO-631 TD (07:29)
[2019-12-25] MEDS ORDERED: FOLI0.4T14 PO (07:29)
[2019-12-25] MEDS ORDERED: LACT10SO PO (07:29)
[2019-12-25] MEDS ORDERED: MELA1TAB9 PO (07:29)
[2019-12-25] MEDS ORDERED: CYAN100T12 PO (07:29)
[2019-12-25] MEDS ORDERED: TRAM50TA2 PO (07:29)
[2019-12-25] MEDS ORDERED: SPIR50TA5 PO (07:29)
[2019-12-25] MEDS ORDERED: MIDO5TAB4 PO (07:29)
[2019-12-25] MEDS ORDERED: FURO-150 PO (07:29)
[2019-12-25] MEDS ORDERED: MAGN400C PO (07:29)
[2019-12-25] MEDS ORDERED: LORA-269 PO (07:29)
[2019-12-25] MEDS ORDERED: OXYC-658 PO (07:29)
--- NOTE | 2019-12-25 09:33 | NUR ---
MD Morales at bedside to discuss procedure. pt resting comfortably in bed.
[2019-12-25] MEDS ORDERED: fentaNYL/PF 50MCG/1 ML 2ML syringe IV PRN (10:20)
[2019-12-25] MEDS ORDERED: midazolam 2 mg/2 ml injection IV PRN (10:20)
[2019-12-25] MEDS ORDERED: LIDOcaine 1% 30ml preserv. free vial SQ ONE (10:20)
[2019-12-25] MEDS ORDERED: midazolam 2 mg/2 ml injection ONE (10:28)
[2019-12-25] MEDS ORDERED: fentaNYL/PF 50MCG/1 ML 2ML syringe ONE (10:28)
--- NOTE | 2019-12-25 10:50 | NUR ---
pt off floor for bx procedure
== END 2019-12-25 12:25 | disposition home or self-care (01) ==
LOC: SSTAY O 06:31 → MED 3N 06:52 → SSTAY O 12:25
PROVIDERS: ATTEND Radiology Diagnostic Radiology
DX: R18.8 Other ascites (principal); M89.8X8 Other specified disorders of bone, other site; N92.0 Excessive and frequent menstruation with regular cycle; D63.8 Anemia in other chronic diseases classified elsewhere; G89.29 Other chronic pain; Z79.899 Other long term (current) drug therapy; Z98.890 Other specified postprocedural states
CPT/HCPCS: 20225; 49083; 77012; 99152; 99153; C1729; J2250; J3010; J7030; P9047; 76937; GO378

== ENCOUNTER 2020-01-09 06:48 | Day surgery (SDC) | payer MEDICAID ==
[~2020-01-09] VITALS: Ht 157.5 cm; Wt 62.7 kg
[2020-01-09] VITALS (7 sets, daily range): BP systolic 91–110; BP diastolic 54–75
[~2020-01-09 06:48] MED LIST changes: +CYAN100T12 PO; +FOLI0.4T14 PO; +FURO-150 PO; +LACT10SO PO; +LIPA1CAP31; +LORA-269 PO; +MAGN400C PO; +MELA1TAB9 PO; +METO5TAB85 PO; +MIDO5TAB4 PO; +NICO-631 TD; +OXYC-658 PO; -PANT-47 PO; +PANT40TA4 PO; -SPIR25TA5 PO; +SPIR50TA5 PO; +SUCR1TAB PO; -THIA100T70 PO; +TRAM50TA2 PO
[2020-01-09] MEDS ORDERED: normal saline 1000ml 1,000 ML IV PRN (07:05)
[2020-01-09] MEDS ORDERED: albumin 25% 100mL bottle x 1 IV PRN (07:05)
== END 2020-01-09 10:30 | disposition home or self-care (01) ==
LOC: SSTAY O 06:48 → MED 3N 06:54 → SSTAY O 10:30
PROVIDERS: ATTEND Radiology Vascular & Interventional Radiology
DX: R18.8 Other ascites (principal); G89.29 Other chronic pain; N92.0 Excessive and frequent menstruation with regular cycle; D63.8 Anemia in other chronic diseases classified elsewhere; K85.20 Alcohol induced acute pancreatitis without necrosis or infection; Z98.890 Other specified postprocedural states; Z79.899 Other long term (current) drug therapy
CPT/HCPCS: 49083; C1729; P9047

== ENCOUNTER 2020-01-18 07:27 | Day surgery (SDC) | payer MEDICAID ==
[2020-01-18] VITALS (12 sets, daily range): BP systolic 90–111; BP diastolic 54–72
[~2020-01-18] VITALS: Ht 152.4 cm; Wt 57.4 kg
[2020-01-18] MEDS ORDERED: albumin 25% 100mL bottle x 1 IV PRN (07:45)
[2020-01-18] MEDS ORDERED: ONDA8TAB6 PO (08:46)
[2020-01-18] MEDS ORDERED: GABA-532 PO (08:46)
[2020-01-18] MEDS ORDERED: ENOX80SY7 SUBCUT (08:46)
[2020-01-18] MEDS ORDERED: CHLO10CA6 PO (08:46)
== END 2020-01-18 11:15 | disposition home or self-care (01) ==
LOC: SSTAY O 07:27 → MED 3N 07:30 → SSTAY O 11:15
PROVIDERS: ATTEND Radiology Vascular & Interventional Radiology
DX: R18.8 Other ascites (principal); G89.29 Other chronic pain; Z98.890 Other specified postprocedural states; Z79.899 Other long term (current) drug therapy
CPT/HCPCS: 49083; C1729; P9047

== ENCOUNTER 2020-02-06 05:58 | Day surgery (SDC) | payer MEDICAID ==
[~2020-02-06] VITALS: Ht 152.4 cm; Wt 57.6 kg
[~2020-02-06 05:58] MED LIST changes: +CHLO10CA6 PO; +ENOX80SY7 SUBCUT; +GABA-532 PO; -LACT10SO PO; -MAGN400C PO; +ONDA8TAB6 PO; -OXYC-658 PO
[2020-02-06] MEDS ORDERED: normal saline 1000ml 1,000 ML IV PRN (06:15)
[2020-02-06 07:29] VITALS: BP 122/79
== END 2020-02-06 09:55 | disposition home or self-care (01) ==
LOC: SSTAY O 05:58
PROVIDERS: ATTEND Radiology Diagnostic Radiology
DX: R18.8 Other ascites (principal); K85.20 Alcohol induced acute pancreatitis without necrosis or infection; G89.29 Other chronic pain; N92.0 Excessive and frequent menstruation with regular cycle; D63.8 Anemia in other chronic diseases classified elsewhere; Z98.890 Other specified postprocedural states; Z79.899 Other long term (current) drug therapy
CPT/HCPCS: 49083; C1729